=== PATIENT | male | born 1950 | race Asian ===

== ENCOUNTER → 2024-10-17 | Outpatient (CLI) | payer OTHER, SELFPAY ==
[2024-10-17 11:20] LABS: Basophils # (Auto) 0.1 Thou/mm3 (0.0-0.2); Basophils % (Auto) 1 % (0-2.5); Eosinophils # (Auto) 0.5 Thou/mm3 (0.0-0.5); Eosinophils % (Auto) 4 % (0-10); Hematocrit 35.3 % (41.0-53.0); Immature Granulocytes % (Auto) 1 % (0-0); Immature Granulocytes Auto 0.07 Thou/mm3 (0.00-0.00); Lymphocytes # (Auto) 0.9 Thou/mm3 (1.0-4.8); Lymphocytes % (Auto) 7 % (10-50); Mean Corpuscular HGB Conc 31.2 g/dl (31.0-37.0); Mean Corpuscular Hemoglobin 23.9 pg (25.0-35.0); Mean Corpuscular Volume 77 fL (80-100); Monocytes % (Auto) 8 % (0-12); Neutrophils # (Auto) 10.7 Thou/mm3 (1.8-7.7); Neutrophils % (Auto) 81 % (37-80); Nucleated Red Blood Cell % 0 /100 WBC (0); Platelet Count 379 Thou/mm3 (140-440); RDW Standard Deviation 44.4 fL (35.1-43.9); Red Blood Count 4.61 Miln/mm3 (4.50-5.90); White Blood Count 13.3 Thou/mm3 (3.8-10.6)
[2024-10-17 11:42] LABS: Alanine Aminotransferase 7 U/L (10-49); Albumin, Serum 4.2 gm/dL (3.4-4.8); Albumin/Globulin Ratio 1.5 (1.2-2.2); Alkaline Phosphatase 87 U/L (46-116); Anion Gap 6 (7-16); Aspartate Amino Transferase 16 U/L (0-34); BUN/Creatinine Ratio 9 Ratio (12-20); Bilirubin,Total 0.7 mg/dL (0.3-1.2); Blood Urea Nitrogen 9 mg/dL (9-23); Calcium 8.8 mg/dL (8.3-10.6); Calcium (Corrected) 8.8 mg/dL (8.5-10.1); Carbon Dioxide 28.7 mMol/L (20.0-31.0); Chloride 106 mMol/L (98-107); Globulin 2.8 gm/dL (2.3-3.5); Glucose 96 mg/dL (74-106); Osmolality,Calculated 279 (275-295); Potassium 3.7 mMol/L (3.4-5.1); Sodium 141 mMol/L (136-145); eGFR > 60 See Note
[2024-10-21 13:50] LABS: BCR-ABL1 Source BLOOD
[2024-10-24 06:58] LABS: P210 BCR-ABL1 NOT DETECTED
== END | disposition home or self-care (01) ==
PROVIDERS: PCP Family Medicine; Referring Provider Nurse Practitioner Family; Visit Provider Nurse Practitioner Family
DX: C92.11 Chronic myeloid leukemia, BCR/ABL-positive, in remission (principal)
CPT/HCPCS: 36415; 80053; 81206; 85025

== ENCOUNTER 2024-11-03 09:41 | Outpatient (RCR) | payer OTHER, SELFPAY | END 2024-11-22 23:59 | disposition home or self-care (01) | LOC: SCTC 09:41 | PROVIDERS: PCP Family Medicine; Referring Provider Family Medicine; Visit Provider Nurse Practitioner Family | DX: C92.10 Chronic myeloid leukemia, BCR/ABL-positive, not having achieved remission (principal); D50.9 Iron deficiency anemia, unspecified; D56.0 Alpha thalassemia; I10 Essential (primary) hypertension | CPT/HCPCS: 99212; G0463 ==

== ENCOUNTER → 2025-01-18 | Outpatient (CLI) | payer OTHER, SELFPAY ==
[2025-01-18 13:06] LABS: Basophils # (Auto) 0.1 Thou/mm3 (0.0-0.2); Basophils % (Auto) 1 % (0-2.5); Eosinophils # (Auto) 0.6 Thou/mm3 (0.0-0.5); Eosinophils % (Auto) 6 % (0-10); Hematocrit 36.2 % (41.0-53.0); Immature Granulocytes % (Auto) 1 % (0-0); Immature Granulocytes Auto 0.05 Thou/mm3 (0.00-0.00); Lymphocytes # (Auto) 0.9 Thou/mm3 (1.0-4.8); Lymphocytes % (Auto) 9 % (10-50); Mean Corpuscular HGB Conc 30.4 g/dl (31.0-37.0); Mean Corpuscular Hemoglobin 23.4 pg (25.0-35.0); Mean Corpuscular Volume 77 fL (80-100); Monocytes # (Auto) 0.7 Thou/mm3 (0.0-0.8); Monocytes % (Auto) 8 % (0-12); Neutrophils % (Auto) 76 % (37-80); Nucleated Red Blood Cell % 0 /100 WBC (0); Platelet Count 341 Thou/mm3 (140-440); RDW Standard Deviation 47.8 fL (35.1-43.9); Red Blood Count 4.71 Miln/mm3 (4.50-5.90); White Blood Count 9.3 Thou/mm3 (3.8-10.6)
[2025-01-18 13:18] LABS: Alanine Aminotransferase 11 U/L (10-49); Albumin, Serum 3.9 gm/dL (3.4-4.8); Albumin/Globulin Ratio 1.4 (1.2-2.2); Alkaline Phosphatase 77 U/L (46-116); Anion Gap 9 (7-16); Aspartate Amino Transferase 17 U/L (0-34); BUN/Creatinine Ratio 15 Ratio (12-20); Bilirubin,Total 0.4 mg/dL (0.3-1.2); Blood Urea Nitrogen 16 mg/dL (9-23); Calcium 8.9 mg/dL (8.3-10.6); Carbon Dioxide 27.1 mMol/L (20.0-31.0); Chloride 109 mMol/L (98-107); Creatinine (Component) 1.1 mg/dL (0.6-1.3); Globulin 2.7 gm/dL (2.3-3.5); Glucose 136 mg/dL (74-106); Osmolality,Calculated 291 (275-295); Potassium 3.8 mMol/L (3.4-5.1); Sodium 145 mMol/L (136-145); Total Protein 6.6 gm/dL (5.7-8.2); eGFR > 60 See Note
[2025-01-25 22:03] LABS: BCR-ABL1 Source BLOOD
[2025-01-26 07:03] LABS: P210 BCR-ABL1 NOT DETECTED
== END | disposition home or self-care (01) ==
LOC: SCTO 12:16
PROVIDERS: PCP Family Medicine; Referring Provider Nurse Practitioner Family; Visit Provider Nurse Practitioner Family
DX: C92.11 Chronic myeloid leukemia, BCR/ABL-positive, in remission (principal)
CPT/HCPCS: 36415; 80053; 81206; 85025

== ENCOUNTER → 2025-02-16 | Outpatient (CLI) | payer OTHER, SELFPAY ==
[2025-02-16 12:18] LABS: Basophils # (Auto) 0.1 Thou/mm3 (0.0-0.2); Basophils % (Auto) 0 % (0-2.5); Eosinophils # (Auto) 0.6 Thou/mm3 (0.0-0.5); Eosinophils % (Auto) 4 % (0-10); Hematocrit 36.6 % (41.0-53.0); Hemoglobin 11.4 g/dL (13.5-16.0); Immature Granulocytes % (Auto) 1 % (0-0); Immature Granulocytes Auto 0.11 Thou/mm3 (0.00-0.00); Lymphocytes # (Auto) 0.8 Thou/mm3 (1.0-4.8); Lymphocytes % (Auto) 5 % (10-50); Mean Corpuscular HGB Conc 31.1 g/dl (31.0-37.0); Mean Corpuscular Hemoglobin 23.3 pg (25.0-35.0); Mean Corpuscular Volume 75 fL (80-100); Monocytes # (Auto) 0.8 Thou/mm3 (0.0-0.8); Monocytes % (Auto) 5 % (0-12); Neutrophils # (Auto) 13.2 Thou/mm3 (1.8-7.7); Neutrophils % (Auto) 85 % (37-80); Nucleated Red Blood Cell % 0 /100 WBC (0); Platelet Count 362 Thou/mm3 (140-440); RDW Standard Deviation 44.3 fL (35.1-43.9); White Blood Count 15.6 Thou/mm3 (3.8-10.6)
[2025-02-16 12:30] LABS: Prothrombin Time 11.2 Seconds (9.0-12.2)
[2025-02-16 12:31] LABS: Alanine Aminotransferase 11 U/L (10-49); Albumin/Globulin Ratio 1.5 (1.2-2.2); Alkaline Phosphatase 72 U/L (46-116); Anion Gap 9 (7-16); Aspartate Amino Transferase 17 U/L (0-34); BUN/Creatinine Ratio 14 Ratio (12-20); Bilirubin,Total 0.4 mg/dL (0.3-1.2); Blood Urea Nitrogen 14 mg/dL (9-23); Calcium 8.8 mg/dL (8.3-10.6); Calcium (Corrected) 8.8 mg/dL (8.5-10.1); Carbon Dioxide 29.3 mMol/L (20.0-31.0); Chloride 106 mMol/L (98-107); Globulin 2.6 gm/dL (2.3-3.5); Glucose 104 mg/dL (74-106); Osmolality,Calculated 287 (275-295); Potassium 3.8 mMol/L (3.4-5.1); Sodium 144 mMol/L (136-145); Total Protein 6.6 gm/dL (5.7-8.2); eGFR > 60 See Note
== END | disposition home or self-care (01) ==
LOC: COPL 11:39
PROVIDERS: PCP Family Medicine; Referring Provider Internal Medicine; Visit Provider Internal Medicine
DX: I25.10 Atherosclerotic heart disease of native coronary artery without angina pectoris (principal); R79.1 Abnormal coagulation profile; I63.9 Cerebral infarction, unspecified
CPT/HCPCS: 36415; 80053; 85025; 85610

== ENCOUNTER 2025-02-20 15:38 | Outpatient (RCR) | payer OTHER, SELFPAY | END 2025-02-20 23:59 | disposition home or self-care (01) | LOC: SCTC 15:38 | PROVIDERS: PCP Family Medicine; Referring Provider Family Medicine; Visit Provider Nurse Practitioner Family | DX: C92.10 Chronic myeloid leukemia, BCR/ABL-positive, not having achieved remission (principal); R05.9 Cough, unspecified; Z87.891 Personal history of nicotine dependence; I10 Essential (primary) hypertension; Z86.2 Personal history of diseases of the blood and blood-forming organs and certain disorders involving the immune mechanism | CPT/HCPCS: 99212; G0463 ==

== ENCOUNTER → 2025-03-30 | Outpatient (CLI) | payer OTHER, SELFPAY ==
[2025-03-28 12:20] LABS: Basophils # (Auto) 0.1 Thou/mm3 (0.0-0.2); Basophils % (Auto) 0 % (0-2.5); Eosinophils # (Auto) 0.1 Thou/mm3 (0.0-0.5); Eosinophils % (Auto) 0 % (0-10); Hematocrit 38.3 % (41.0-53.0); Hemoglobin 11.9 g/dL (13.5-16.0); Immature Granulocytes % (Auto) 1 % (0-0); Immature Granulocytes Auto 0.28 Thou/mm3 (0.00-0.00); Lymphocytes # (Auto) 0.5 Thou/mm3 (1.0-4.8); Lymphocytes % (Auto) 2 % (10-50); Mean Corpuscular HGB Conc 31.1 g/dl (31.0-37.0); Mean Corpuscular Hemoglobin 23.5 pg (25.0-35.0); Mean Corpuscular Volume 76 fL (80-100); Monocytes # (Auto) 1.5 Thou/mm3 (0.0-0.8); Monocytes % (Auto) 6 % (0-12); Neutrophils # (Auto) 23.2 Thou/mm3 (1.8-7.7); Neutrophils % (Auto) 91 % (37-80); Nucleated Red Blood Cell % 0 /100 WBC (0); Platelet Count 407 Thou/mm3 (140-440); RDW Standard Deviation 44.2 fL (35.1-43.9); Red Blood Count 5.06 Miln/mm3 (4.50-5.90); White Blood Count 25.6 Thou/mm3 (3.8-10.6)
[2025-03-28 12:33] LABS: Alanine Aminotransferase < 7 U/L (10-49); Albumin, Serum 4.4 gm/dL (3.4-4.8); Albumin/Globulin Ratio 1.5 (1.2-2.2); Alkaline Phosphatase 80 U/L (46-116); Anion Gap 8 (7-16); Aspartate Amino Transferase 15 U/L (0-34); BUN/Creatinine Ratio 14 Ratio (12-20); Blood Urea Nitrogen 15 mg/dL (9-23); Carbon Dioxide 26.5 mMol/L (20.0-31.0); Chloride 105 mMol/L (98-107); Creatinine (Component) 1.1 mg/dL (0.6-1.3); Glucose 126 mg/dL (74-106); Osmolality,Calculated 280 (275-295); Potassium 3.2 mMol/L (3.4-5.1); Sodium 139 mMol/L (136-145); Total Protein 7.4 gm/dL (5.7-8.2); eGFR > 60 See Note
--- NOTE | 2025-03-30 14:00 | XR_ITS ---
Examination: CT chest with intravenous contrast 2-D sagittal and coronal reconstructions Exam date and time: March 30, 2025 1411 hours INDICATIONS: Diagnosis chronic myeloid leukemia in remission, coughing one month, leukemia diagnosis 2010 CTDI:vol (mGy) 5.35 DLP: (mGycm) 215 Technique: Multiple axial sections of the thorax have been obtained. Sections have been obtained, 3 mm slice thickness. Mediastinal and lung density settings have been obtained. Intravenous contrast administered, 60 cc Isovue-370. 2-D sagittal, coronal images obtained. Low dose protocols were performed. One or more of the following dose reduction techniques were used; automated exposure control, adjustment of the mA and/or KV according to patient size, use of iterative reconstruction technique. Findings: Heavy thoracic aortic calcification No thoracic aortic aneurysm dilatation No pulmonary artery filling defects Heavy calcification left anterior descending right coronary arteries No paratracheal tracheobronchial or bronchopulmonary adenopathy At least 15 bilateral pulmonary nodules, the largest in the left lower lobe 12 mm with indistinct margins Parenchymal disease which may represent pneumonia at the left base COPD with areas of airspace destruction No pulmonary edema No visualized liver or splenic lesion No gallstones No pancreatic mass Heavy abdominal aortic calcification 2 mm upper pole right renal calculus Severe osteopenia IMPRESSION: Multiple pulmonary nodules as above, 6 month follow-up CT chest without contrast recommended More prominent parenchymal disease left base most consistent with pneumonia but clinical correlation advised COPD 2 mm upper pole nonobstructing right renal calculus
[2025-04-01 17:48] LABS: BCR-ABL1 Source BLOOD; BCR-ABL1/ABL1 % IS 0.064 (0.000)
[2025-04-03 07:07] LABS: P210 BCR-ABL1 DETECTED
== END | disposition home or self-care (01) ==
LOC: CCTX 13:46
PROVIDERS: PCP Family Medicine; Referring Provider Nurse Practitioner Family; Visit Provider Nurse Practitioner Family
DX: R91.8 Other nonspecific abnormal finding of lung field (principal); C92.11 Chronic myeloid leukemia, BCR/ABL-positive, in remission
CPT/HCPCS: 36415; 71260; 80053; 81206; 85025; A4649; Q9967

== ENCOUNTER 2025-04-10 13:20 | Outpatient (RCR) | payer OTHER, SELFPAY ==
--- NOTE | 2025-04-13 14:18 | CTCFLWUP_ITS ---
Patient: DERRICK WATSON : 1950 Page 2 of 2 FOLLOW UP NOTE DATE OF SERVICE: 04/10/2025 NAME: DERRICK WATSON ACCOUNT: [id number] : 1950 AGE: 74 INTERVAL HISTORY: Subjective: Chief Complaint Follow-up for multiple medical conditions, fatigue, possible iron deficiency History of Present Illness Azam Pardo is a patient with a complex medical history including chronic myeloid leukemia (CML), coronary artery disease (CAD), chronic obstructive pulmonary disease (COPD), and JAK2 mutation-positive thrombocythemia. He presents for follow-up of his multiple conditions and recent cardiac events. The patient reports feeling tired, which may be related to iron deficiency. He recently underwent a cardiac stent placement two weeks ago due to significant coronary artery disease, following a myocardial infarction in December. His heart condition is described as fragile, requiring careful management alongside his blood cancer treatment. Azam's CML history is notable for being BCR-ABL negative since 2012, but restarting in 2021. It became negative again in June 2024, but is now showing an increase (0.064). He was previously on Gleevec, then switched to Tasigna due to peripheral vascular disease. However, Tasigna was discontinued following his myocardial infarction. Currently, he is not on any CML medication. The patient's COPD, likely exacerbated by chronic smoking, was noted in his 8th ME scan. He quit smoking in 2009. Recent pulmonary function tests (PFTs) show significant obstruction and air trapping. A recent CT scan revealed at least 15 small nodules in his lungs and left-sided pneumonia. Kristinas thrombocythemia is being managed with hydroxyurea, which is causing anemia as a side effect. He is currently taking aspirin and Brilinta following his heart attack, which increases his risk of bleeding. Medications and Supplements - Tasigna - Discontinued due to myocardial infarction. - Gleevec - Switched to Tasigna due to peripheral vascular disease. - Hydroxyurea - Used for treatment of JAK2 mutation-positive thrombocythemia. - Causes bone marrow suppression, leading to anemia. - Aspirin - Brilinta - Taken after heart attack in December. - Increases risk of bleeding. Review of Systems General: Positive for fatigue. Cardiovascular: Negative for chest pain. Respiratory: Positive for shortness of breath (implied by COPD and lungs are very bad ). 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 Alpha thalassemia Peripheral vascular disease of the right lower extremity. S/p surgery INTERVAL HISTORY: PREVIOUS NOTE: Derrick Nascimento is a 74-year-old Welsh-speaking [place] male with following history. 12/16/2011: Bone marrow biopsy and aspiration showed marketed hypercellular marrow, myeloid hyperplasia in all stages of maturation with 1% blast population. BCR/ABL FISH study positive. BCR/ABL translocation was observed in the 82% of the cells analyzed. Cytogenetics positive for Elbert chromosome. January 2012: Tasigna started. 07/19/2013: BCR/able transcript level 0%. 01/19/2014: BCR/ABL transcript level 0% 08/13/2015: BCR/ABL transcript level 0% 05/27/2016: BCR/able transcript level of 0%. 2017: Tasigna was changed to Gleevec due to insurance reasons. 03/29/2018: BCR/ABL transcript level 0% 06/28/2018: BCR/ABL transcript level 0%. 07/05/2018: Gleevec discontinued. 10/29/2018: BCR/ABL transcript levels 2.694% 11/08/2018: Gleevec 300 mg p.o. daily restarted. Patient was also taking hydroxyurea. 12/31/2018: BCR/ABL transcript level 0% 01/17/2019: Hydroxyurea discontinued. 04/05/2019: BCR/ABL transcript level 0%. 04/11/2019: Alpha globin common mutation test showed heterozygous positive for alpha (Zero), genotype (- -/alpha alpha) thalassemia mutation. 06/23/2019: BCR/ABL transcript level 0.006% 08/23/2019: BCR/ABL transcript level 0%. 11/21/2019: BCR/ABL transcript level 0%. 02/23/2020: BCR/ABL transcript level 0.004% 05/24/2020: BCR/ABL transcript level 0.004% 08/14/2020: BCR/ABL transcript level 0.007%. WBC 9.8, ANC 7.2. 11/13/2020: BCR/ABL transcript level 0.007%. WBC 10.1, ANC 6.5. 02/12/2021: BCR/ABL transcript level 0%. WBC 13.0, ANC 9.8. 02/12/2021: Patient has decreased the dose of Tasigna 250 mg p.o. twice daily due to body aches. 05/22/2021: Mr. Watson is currently taking Tasigna 300 mg p.o. twice daily. WBC is 9.9, ANC 16.6. BCR/ABL transcript level is 0%. WBC 19.9, ANC 16.6. 08/15/2021: BCR/ABL transcript level 0%. WBC 20.6, ANC 16.7. 11/14/2021: BCR/ABL transcript level 0%. WBC 15.1, ANC 12.3, hemoglobin 10.7, MCV 73, platelets 523,000. 11/29/2021: Patient stopped taking Tasigna due to worsening peripheral vascular disease in the lower extremities. 03/26/2022: Patient restarted taking Tasigna 300 mg p.o. twice daily 04/08/2022: BCR/ABL transcript level 1.477% 07/24/2022: BCR/ABL transcript level 0.0% 02/19/2023: BCR/ABL transcript level 0.0%. 06/19/2023: BCR/ABL transcript level 0.007%. 09/21/2023: BCR/ABL transcript level 0.000%. 01/19/2024: BCR/ABL transcript level 0.005%. 04/19/2024: BCR-ABL transcript level 0.003%. 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 on Tasigna 300 mg p.o. twice jena and hydroxyurea 500 mg every other day. Alpha thalassemia Peripheral vascular disease of the right lower extremity. S/p surgery DATE OF DIAGNOSIS: 12/16/2011 STAGE/TNM: TREATMENT HISTORY: Care?Plan Start?Date Cycle Day Intent HISTORY OF PRESENT ILLNESS: OTHER MEDICAL HISTORY/CONDITIONS: FAMILY HISTORY: SOCIAL HISTORY: MEDICATIONS: 1. Aspir-81 - 81 mg 1 Daily 2. Brilinta - 60 mg 1 tab Twice a Day 3. Brilinta - 90 mg 1 tab Twice a Day 4. hydrocodone bitartrate - 7.5 mg Twice a Day 5. hydroxyurea - 500 mg 1 Capsule Every other day 6. Lipitor - 20 mg 1 tab Daily 7. metoprolol succinate - 50 mg 1 tab Daily 8. pantoprazole - 40 mg 1 tab Daily 9. pentoxifylline - 400 mg 1 tab Twice a Day 10. tamsulosin - 0.4 mg 1 Capsule Daily 11. Tylenol - 500 mg As needed 12. Ventolin HFA - 90 mcg/actuation 2 Puff(s) Twice a Day Medications Last Reconciled by Keisha Gary MA on 04/10/2025 ALLERGIES: No Known Drug Allergies REVIEW OF SYSTEMS: A complete 14-point review of systems was performed and is negative except as noted in interval history. PHYSICAL EXAMINATION: VITAL SIGNS: Temperature?98.4, B/P?137/68, Oxygen?Saturation?97% Weight?96?lbs PAIN: 0 - No pain ECOG Performance Status: 0 - Asymptomatic and fully active GENERAL APPEARANCE: Appears well, in no apparent distress, appropriately interactive. HEENT: normal conjunctiva, no scleral icterus, normal hearing, lips without lesions, neck normal range of motion. CARDIOVASCULAR: Normal heart sounds PULMONARY: Normal respiratory effort, no respiratory distress or use of accessory muscles, speaking in full sentences, no tachypnea. EXTREMITIES: No pedal edema SKIN: Normal skin appearance. NEUROLOGIC: Alert and ORIENTED x4. PSHYCHIATRIC: Appropriate affect, mood normal, behavior normal, intact thought and speech. LABORATORY DATA: I have personally reviewed and interpreted each of the patient?s relevant lab tests, abnormal findings are below: Date 03/28/25 04/11/25 ??WHITE?BLOOD?COUNT?(Thou/mm3) 25.6?H 14.2?H ??RED?BLOOD?COUNT?(Miln/mm3) 5.06 4.88 ??HEMOGLOBIN?(gm/dl) 11.9?L 11.6?L ??HEMATOCRIT?(%) 38.3?L 36.8?L ??PLATELET?COUNT?(Thou/mm3) 407 486?H ??NEUTROPHILS?%,?AUTO?(%) 91?H 82?H ??LYMPH?%,?AUTO?(%) 2?L 7?L ??NEUTROPHILS,?AUTO?(Thou/mm3) 23.2?H 11.6?H ??GLUCOSE,RANDOM?(mg/dL) 126?H 100 ??BLOOD?UREA?NITROGEN?(mg/dL) 15 12 ??CREATININE?(mg/dL) 1.10 1.00 ??SODIUM?(mmol/L) 139 146?H ??POTASSIUM?(mmol/L) 3.2?L 3.7 ??CHLORIDE?(mmol/L) 105 109?H ??CrCl?(CandG)?(ml/min) 36.65 38.71 ??AST/SGOT?(Unit/L) 15 13 ??ALT/SGPT?(Unit/L) <?7?L <?7?L ??ALKALINE?PHOSPHATASE?(Unit/L) 80 79 ??BILIRUBIN,?TOTAL?(mg/dL) 1.0 0.5 ??PROTEIN?TOTAL?(gm/dl) 7.4 7.0 ??ALBUMIN,?SERUM?(gm/dl) 4.4 4.1 ??GLOBULIN?(gm/dl) 3.0 2.9 ??ALBUMIN/GLOBULIN?RATIO 1.5 1.4 ??CALCIUM,?SERUM?(mg/dL) 9.0 8.4 ??CALCIUM?SERUM?(CORRECTED)?(mg/dL) 9.0 8.4?L ASSESSMENT/PLAN: 1. Chronic phase CML. BCR/ABL transcript level 0.000 on 02/16/2025. Platelets are 362,000, WBC 15.6, ANC 13.2 (02/16/2025). 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 Currently Mr. Watson is on hydroxyurea 500mg every other day. Tolerating them well without any significant side effects. We will not be restarting to tasigna due to black box warning and patient's myocardial infarction 01/23/2025. BCR-ABL transcript levels remain at 0.000, if levels increase we will consider repeating bone marrow biopsy then. Referral to Dr. Calvin at [facility] for second opinion on treatment options for CML, (chronic myeloid leukemia). Patient can continue with hydroxyurea every other day while we wait for second opinion from Dr. Calvin. Assessment and Plan: Azam pardo, a patient with a history of chronic myeloid leukemia (CML), coronary artery disease (CAD), and chronic obstructive pulmonary disease (COPD), presents for follow-up of multiple medical issues including recent myocardial infarction, lung nodules, and thrombocythemia. Patient has a history of CML, previously treated with Gleevec and then Tasigna. BCR-ABL was negative since 2012, restarted in 2021, and became negative again in June 2024. However, recent labs show BCR-ABL is now 0.064, indicating a possible relapse. Patient also has JAK2 mutation-positive thrombocythemia, causing elevated platelet count (694). Current symptoms include fatigue, which may be related to iron deficiency. White cell count is elevated at 12.7, and eosinophils are also elevated. Patient is not currently on any CML medication due to recent myocardial infarction. Plan: - Order bone marrow biopsy in [place] to assess current clone and check for any changes or mutations - Consult with Dr. Morse, an expert in this case - Consider restarting CML treatment after cardiac evaluation - Monitor BCR-ABL levels and complete blood count - Evaluate for iron deficiency and consider supplementation if confirmed Coronary Artery Disease (CAD) with Recent Myocardial Infarction Assessment: Patient experienced a myocardial infarction in December 2024, likely exacerbated by chronic smoking history and COPD. Two weeks ago, another stent was placed due to significant coronary artery disease. Patient is currently on dual antiplatelet therapy (aspirin and Brilinta) post-[place], which increases bleeding risk. The heart is in a fragile state, complicating management of other conditions, particularly CML treatment. Plan: - Order echocardiogram to assess current heart function - Continue aspirin and Brilinta as prescribed - Coordinate with cardiology for ongoing management - Consider cardiac risks when planning CML treatment Chronic Obstructive Pulmonary Disease (COPD) Assessment: COPD was noted in the patient's 8th ME scan. Recent pulmonary function tests (PFTs) show significant obstruction and air trapping. Patient has at least 15 small nodules in the lungs and left-sided pneumonia on recent imaging. Patient quit smoking in 2009, but has a significant smoking history contributing to COPD and CAD. Plan: - Monitor respiratory status - Follow up on recent CT scan and PFT results - Consider pulmonology referral for management of COPD and lung nodules Thrombocythemia Assessment: Patient has JAK2 mutation-positive thrombocythemia, causing elevated platelet count (694). Previously treated with hydroxyurea, which was effective but caused bone marrow suppression and anemia. Plan: - Reassess need for hydroxyurea treatment, considering risks and benefits - Monitor platelet count and hemoglobin levels - Coordinate treatment plan with hematology Electrolyte Imbalance Assessment: Recent labs show low potassium levels. Plan: - Prescribe potassium supplement - Recheck potassium levels after supplementation Peripheral Vascular Disease Assessment: Patient has a history of peripheral vascular disease, which led to switching from Gleevec to Tasigna for CML treatment. Plan: - Vascular surgery scheduled for April 2025 - Coordinate care with vascular surgery team BILLING AND COMPLIANCE: I reviewed external records from providers outside my specialty as summarized above. I spent a total of 50 minutes on this patient?s care on the day of their visit excluding time spent related to any billed procedures. This time includes time spent with the patient as well as time spent documenting in the medical record, reviewing patients records and tests, obtaining history, placing orders, communicating with other healthcare professionals, counseling the patient, family or caregiver, and/or care coordination for the diagnoses above. Electronically Signed by: Wolf Siu MD T: 1:11 PM CC: Sarah? PCP: Dorian Christian Referring: Dorian Christian This document was completed utilizing speech recognition software. Grammatical errors, random word insertions, pronoun errors, and incomplete sentences are an occasional consequence of this system due to software limitations, ambient noise, and hardware issues. Any formal questions or concerns about the content, text or information contained within the body of this dictation should be directly addressed to the provider for clarification.
== END 2025-04-22 23:59 | disposition home or self-care (01) ==
LOC: SCTC 13:20
PROVIDERS: PCP Family Medicine; Referring Provider Family Medicine; Visit Provider Internal Medicine Hematology & Oncology
DX: C92.11 Chronic myeloid leukemia, BCR/ABL-positive, in remission (principal); R53.0 Neoplastic (malignant) related fatigue; I25.10 Atherosclerotic heart disease of native coronary artery without angina pectoris; J44.9 Chronic obstructive pulmonary disease, unspecified; D75.839 Thrombocytosis, unspecified; E87.6 Hypokalemia; I73.9 Peripheral vascular disease, unspecified
CPT/HCPCS: 99212; G0463

== ENCOUNTER → 2025-04-11 | Outpatient (CLI) | payer OTHER, SELFPAY ==
[2025-04-11 09:18] LABS: Quantiferon-TB* See Sep Rpt
[2025-04-11 10:17] LABS: Basophils # (Auto) 0.1 Thou/mm3 (0.0-0.2); Basophils % (Auto) 1 % (0-2.5); Eosinophils # (Auto) 0.5 Thou/mm3 (0.0-0.5); Eosinophils % (Auto) 3 % (0-10); Hematocrit 36.8 % (41.0-53.0); Hemoglobin 11.6 g/dL (13.5-16.0); Immature Granulocytes % (Auto) 1 % (0-0); Lymphocytes % (Auto) 7 % (10-50); Mean Corpuscular HGB Conc 31.5 g/dl (31.0-37.0); Mean Corpuscular Hemoglobin 23.8 pg (25.0-35.0); Mean Corpuscular Volume 75 fL (80-100); Monocytes % (Auto) 7 % (0-12); Neutrophils # (Auto) 11.6 Thou/mm3 (1.8-7.7); Neutrophils % (Auto) 82 % (37-80); Nucleated Red Blood Cell % 0 /100 WBC (0); Platelet Count 486 Thou/mm3 (140-440); RDW Standard Deviation 45.1 fL (35.1-43.9); Red Blood Count 4.88 Miln/mm3 (4.50-5.90); White Blood Count 14.2 Thou/mm3 (3.8-10.6)
[2025-04-11 10:43] LABS: Alanine Aminotransferase < 7 U/L (10-49); Albumin, Serum 4.1 gm/dL (3.4-4.8); Albumin/Globulin Ratio 1.4 (1.2-2.2); Alkaline Phosphatase 79 U/L (46-116); Anion Gap 8 (7-16); Aspartate Amino Transferase 13 U/L (0-34); BUN/Creatinine Ratio 12 Ratio (12-20); Bilirubin,Total 0.5 mg/dL (0.3-1.2); Blood Urea Nitrogen 12 mg/dL (9-23); Calcium 8.4 mg/dL (8.3-10.6); Calcium (Corrected) 8.4 mg/dL (8.5-10.1); Chloride 109 mMol/L (98-107); Globulin 2.9 gm/dL (2.3-3.5); Glucose 100 mg/dL (74-106); Osmolality,Calculated 290 (275-295); Potassium 3.7 mMol/L (3.4-5.1); Sodium 146 mMol/L (136-145); eGFR > 60 See Note
[2025-04-11 13:10] LABS: Cocci Serology, IgM Negative (Negative)
[2025-04-11 15:39] LABS: HIV (1&2) Antibody Rapid Non-Reactive
[2025-04-12 11:13] LABS: Cocci Serology, IgG Negative (Negative)
[2025-04-14 15:34] LABS: BCR-ABL1 Source BLOOD; BCR-ABL1/ABL1 % IS 0.024 (0.000)
[2025-04-18 06:58] LABS: P210 BCR-ABL1 DETECTED
== END | disposition home or self-care (01) ==
LOC: COPL 08:57
PROVIDERS: PCP Family Medicine; Referring Provider Internal Medicine Hematology & Oncology; Visit Provider Internal Medicine Hematology & Oncology
DX: C92.11 Chronic myeloid leukemia, BCR/ABL-positive, in remission (principal)
CPT/HCPCS: 36415; 80053; 81206; 85025; 86331; 86480; 86635; 86703

== ENCOUNTER → 2025-04-18 | Outpatient (CLI) | payer OTHER, SELFPAY ==
--- NOTE | 2025-04-18 11:15 | EKG_ITS ---
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: COLTON : 1950 Requested By: Edward Fam Order Number: [id number] Reading MD: Edward Fam Measurements Intervals [place] Rate: 94 P: 80 SC: 212 QRS: 96 QRSD: 147 T: 74 QT: 384 QTc: 482 Interpretive Statements SINUS RHYTHM WITH FIRST DEGREE AV BLOCK WITH FREQUENT VENTRICULAR PREMATURE COMPLEXES POSSIBLE LEFT ATRIAL ENLARGEMENT [-0.1mV P WAVE IN V1/V2] RIGHT BUNDLE BRANCH BLOCK [120+ ms QRS DURATION, UPRIGHT V1, 40+ ms S IN I/aVL/V4/V5/V6] SEPTAL MYOCARDIAL INFARCTION , OF INDETERMINATE AGE [40+ ms Q WAVE IN V1/V2] Compared to ECG 05/20/2024 10:32:45 Ventricular premature complex(es) now present Myocardial infarct finding now present /store/S0/[id number].pdf
[2025-04-18 11:33] LABS: Partial Thromboplastin Time 29.6 Seconds (22.0-36.0); Prothrombin Time 11.4 Seconds (9.0-12.2)
[2025-04-18 11:57] LABS: Basophils # (Auto) 0.1 Thou/mm3 (0.0-0.2); Basophils % (Auto) 1 % (0-2.5); Eosinophils # (Auto) 0.4 Thou/mm3 (0.0-0.5); Eosinophils % (Auto) 3 % (0-10); Hematocrit 39.8 % (41.0-53.0); Hemoglobin 12.6 g/dL (13.5-16.0); Immature Granulocytes % (Auto) 1 % (0-0); Immature Granulocytes Auto 0.07 Thou/mm3 (0.00-0.00); Lymphocytes % (Auto) 7 % (10-50); Mean Corpuscular HGB Conc 31.7 g/dl (31.0-37.0); Mean Corpuscular Hemoglobin 23.6 pg (25.0-35.0); Mean Corpuscular Volume 75 fL (80-100); Monocytes # (Auto) 0.8 Thou/mm3 (0.0-0.8); Monocytes % (Auto) 6 % (0-12); Neutrophils # (Auto) 11.1 Thou/mm3 (1.8-7.7); Neutrophils % (Auto) 82 % (37-80); Nucleated Red Blood Cell % 0 /100 WBC (0); Platelet Count 422 Thou/mm3 (140-440); RDW Standard Deviation 44.2 fL (35.1-43.9); Red Blood Count 5.34 Miln/mm3 (4.50-5.90); White Blood Count 13.5 Thou/mm3 (3.8-10.6)
[2025-04-18 12:21] LABS: Alanine Aminotransferase < 7 U/L (10-49); Albumin, Serum 4.2 gm/dL (3.4-4.8); Albumin/Globulin Ratio 1.5 (1.2-2.2); Alkaline Phosphatase 89 U/L (46-116); Anion Gap 10 (7-16); Aspartate Amino Transferase 15 U/L (0-34); BUN/Creatinine Ratio 12 Ratio (12-20); Bilirubin,Total 0.4 mg/dL (0.3-1.2); Blood Urea Nitrogen 13 mg/dL (9-23); Carbon Dioxide 28.8 mMol/L (20.0-31.0); Chloride 107 mMol/L (98-107); Creatinine (Component) 1.1 mg/dL (0.6-1.3); Globulin 2.8 gm/dL (2.3-3.5); Glucose 124 mg/dL (74-106); Osmolality,Calculated 291 (275-295); Potassium 4.4 mMol/L (3.4-5.1); Sodium 146 mMol/L (136-145); eGFR > 60 See Note
== END | disposition home or self-care (01) ==
PROVIDERS: PCP Family Medicine; Referring Provider Surgery Vascular Surgery; Visit Provider Surgery Vascular Surgery
DX: Z01.818 Encounter for other preprocedural examination (principal); I70.213 Atherosclerosis of native arteries of extremities with intermittent claudication, bilateral legs
CPT/HCPCS: 36415; 80053; 85025; 85610; 85730; 93005

== ENCOUNTER 2025-05-25 13:26 | Outpatient (RCR) | payer OTHER, SELFPAY ==
--- NOTE | 2025-06-12 00:17 | CTCFLWUP_ITS ---
Patient: DERRICK WATSON : 1950 Page 4 of 6 FOLLOW UP NOTE DATE OF SERVICE: 05/25/2025 NAME: DERRICK WATSON ACCOUNT: [id number] : 1950 AGE: 74 INTERVAL HISTORY: Derrick, a male with chronic myeloid leukemia in remission since 2012, presented for follow-up after stopping hydroxyurea and nilotinib (Tasigna) following a recent heart attack. His BCR-ABL levels have been [address] scan showed 15 small lung nodules with pneumonia-like changes, and pulmonary function tests revealed 75% obstructive disease unresponsive to inhalers. Management includes discontinuing hydroxyurea, monitoring CBC every 2 months, BCR-ABL testing quarterly, pulmonology referral, and continuing multivitamin supplementation. Subjective: Chief Complaint Follow-up for chronic myeloid leukemia (CML) in remission, recent discontinuation of hydroxyurea, history of heart attack History of Present Illness Derrick Perez is a male patient with a history of chronic myeloid leukemia (CML) presenting for follow-up. He recently had a heart attack and has stopped taking hydroxyurea and Tasigna (nilotinib) as a result. The patient reports feeling better since stopping hydroxyurea, which he was taking at a very small dose. He discontinued Tasigna in December 2024 when he experienced a heart attack. The patient has been in remission from CML since 2012, with BCR-ABL levels consistently at 0 for the past [address] scan revealed small nodules in the patient's chest, with approximately 15 nodules noted. There was also evidence of pneumonia-like changes in his lungs. The patient reports being sick prior to the CT scan. A lung function test was performed, showing that the patient could not reach 90 percent volume. He has been diagnosed with 75 percent obstructive disease, which did not improve with inhaler use. The patient has a history of smoking since age 14 but quit before his leukemia diagnosis. The patient denies seeing a lung specialist for his respiratory issues. He reports a history of pneumonia, which may have contributed to elevated white blood cell counts in the past. The patient is not currently experiencing any specific symptoms related to his CML or respiratory condition. Medications and Supplements - Hydroxyurea - Recently stopped due to heart attack - Was on a very small dose - Tasigna (Nilotinib) - Stopped in December 2024 - Adult multivitamin - Daily Review of Systems Respiratory: Positive for difficulty reaching 90 percent volume on lung function test. 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 Alpha thalassemia Peripheral vascular disease of the right lower extremity. S/p surgery INTERVAL HISTORY: PREVIOUS NOTE: Derrick Nascimento is a 74-year-old Danish-speaking [place] male with following history. 12/16/2011: Bone marrow biopsy and aspiration showed marketed hypercellular marrow, myeloid hyperplasia in all stages of maturation with 1% blast population. BCR/ABL FISH study positive. BCR/ABL translocation was observed in the 82% of the cells analyzed. Cytogenetics positive for [place] chromosome. January 2012: Tasigna started. 07/19/2013: BCR/able transcript level 0%. 01/19/2014: BCR/ABL transcript level 0% 08/13/2015: BCR/ABL transcript level 0% 05/27/2016: BCR/able transcript level of 0%. 2017: Tasigna was changed to Gleevec due to insurance reasons. 03/29/2018: BCR/ABL transcript level 0% 06/28/2018: BCR/ABL transcript level 0%. 07/05/2018: Gleevec discontinued. 10/29/2018: BCR/ABL transcript levels 2.694% 11/08/2018: Gleevec 300 mg p.o. daily restarted. Patient was also taking hydroxyurea. 12/31/2018: BCR/ABL transcript level 0% 01/17/2019: Hydroxyurea discontinued. 04/05/2019: BCR/ABL transcript level 0%. 04/11/2019: Alpha globin common mutation test showed heterozygous positive for alpha (Zero), genotype (- -/alpha alpha) thalassemia mutation. 06/23/2019: BCR/ABL transcript level 0.006% 08/23/2019: BCR/ABL transcript level 0%. 11/21/2019: BCR/ABL transcript level 0%. 02/23/2020: BCR/ABL transcript level 0.004% 05/24/2020: BCR/ABL transcript level 0.004% 08/14/2020: BCR/ABL transcript level 0.007%. WBC 9.8, ANC 7.2. 11/13/2020: BCR/ABL transcript level 0.007%. WBC 10.1, ANC 6.5. 02/12/2021: BCR/ABL transcript level 0%. WBC 13.0, ANC 9.8. 02/12/2021: Patient has decreased the dose of Tasigna 250 mg p.o. twice daily due to body aches. 05/22/2021: Mr. Watson is currently taking Tasigna 300 mg p.o. twice daily. WBC is 9.9, ANC 16.6. BCR/ABL transcript level is 0%. WBC 19.9, ANC 16.6. 08/15/2021: BCR/ABL transcript level 0%. WBC 20.6, ANC 16.7. 11/14/2021: BCR/ABL transcript level 0%. WBC 15.1, ANC 12.3, hemoglobin 10.7, MCV 73, platelets 523,000. 11/29/2021: Patient stopped taking Tasigna due to worsening peripheral vascular disease in the lower extremities. 03/26/2022: Patient restarted taking Tasigna 300 mg p.o. twice daily 04/08/2022: BCR/ABL transcript level 1.477% 07/24/2022: BCR/ABL transcript level 0.0% 02/19/2023: BCR/ABL transcript level 0.0%. 06/19/2023: BCR/ABL transcript level 0.007%. 09/21/2023: BCR/ABL transcript level 0.000%. 01/19/2024: BCR/ABL transcript level 0.005%. 04/19/2024: BCR-ABL transcript level 0.003%. 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 on Tasigna 300 mg p.o. twice jena and hydroxyurea 500 mg every other day. Alpha thalassemia Peripheral vascular disease of the right lower extremity. S/p surgery DATE OF DIAGNOSIS: 12/16/2011 STAGE/TNM: TREATMENT HISTORY: Care?Plan Start?Date Cycle Day Intent HISTORY OF PRESENT ILLNESS: OTHER MEDICAL HISTORY/CONDITIONS: FAMILY HISTORY: SOCIAL HISTORY: MEDICATIONS: 1. Aspir-81 - 81 mg 1 Daily 2. Brilinta - 60 mg 1 tab Twice a Day 3. Brilinta - 90 mg 1 tab Twice a Day 4. hydrocodone bitartrate - 7.5 mg Twice a Day 5. hydroxyurea - 500 mg 1 Capsule Every other day 6. Lipitor - 20 mg 1 tab Daily 7. metoprolol succinate - 50 mg 1 tab Daily 8. pantoprazole - 40 mg 1 tab Daily 9. pentoxifylline - 400 mg 1 tab Twice a Day 10. tamsulosin - 0.4 mg 1 Capsule Daily 11. Tylenol - 500 mg As needed 12. Ventolin HFA - 90 mcg/actuation 2 Puff(s) Twice a Day Medications Last Reconciled by Keisha Gary MA on 05/25/2025 ALLERGIES: No Known Drug Allergies REVIEW OF SYSTEMS: A complete 14-point review of systems was performed and is negative except as noted in interval history. PHYSICAL EXAMINATION: VITAL SIGNS: Temperature?98.2, B/P?108/60, Oxygen?Saturation?98% Weight?100?lbs PAIN: 0 - No pain ECOG Performance Status: 0 - Asymptomatic and fully active GENERAL APPEARANCE: Appears well, in no apparent distress, appropriately interactive. HEENT: normal conjunctiva, no scleral icterus, normal hearing, lips without lesions, neck normal range of motion. CARDIOVASCULAR: Normal heart sounds PULMONARY: Normal respiratory effort, no respiratory distress or use of accessory muscles, speaking in full sentences, no tachypnea. EXTREMITIES: No pedal edema SKIN: Normal skin appearance. NEUROLOGIC: Alert and ORIENTED x4. PSHYCHIATRIC: Appropriate affect, mood normal, behavior normal, intact thought and speech. LABORATORY DATA: I have personally reviewed and interpreted each of the patient?s relevant lab tests, abnormal findings are below: Date 04/11/25 04/18/25 ??WHITE?BLOOD?COUNT?(Thou/mm3) 14.2?H 13.5?H ??RED?BLOOD?COUNT?(Miln/mm3) 4.88 5.34 ??HEMOGLOBIN?(gm/dl) 11.6?L 12.6?L ??HEMATOCRIT?(%) 36.8?L 39.8?L ??PLATELET?COUNT?(Thou/mm3) 486?H 422 ??NEUTROPHILS?%,?AUTO?(%) 82?H 82?H ??LYMPH?%,?AUTO?(%) 7?L 7?L ??NEUTROPHILS,?AUTO?(Thou/mm3) 11.6?H 11.1?H ??GLUCOSE,RANDOM?(mg/dL) 100 124?H ??BLOOD?UREA?NITROGEN?(mg/dL) 12 13 ??CREATININE?(mg/dL) 1.00 1.10 ??SODIUM?(mmol/L) 146?H 146?H ??POTASSIUM?(mmol/L) 3.7 4.4 ??CHLORIDE?(mmol/L) 109?H 107 ??CrCl?(CandG)?(ml/min) 38.71 35.19 ??AST/SGOT?(Unit/L) 13 15 ??ALT/SGPT?(Unit/L) <?7?L <?7?L ??ALKALINE?PHOSPHATASE?(Unit/L) 79 89 ??BILIRUBIN,?TOTAL?(mg/dL) 0.5 0.4 ??PROTEIN?TOTAL?(gm/dl) 7.0 7.0 ??ALBUMIN,?SERUM?(gm/dl) 4.1 4.2 ??GLOBULIN?(gm/dl) 2.9 2.8 ??ALBUMIN/GLOBULIN?RATIO 1.4 1.5 ??CALCIUM,?SERUM?(mg/dL) 8.4 9.0 ??CALCIUM?SERUM?(CORRECTED)?(mg/dL) 8.4?L 9.0 ASSESSMENT/PLAN: 1. Chronic phase CML. BCR/ABL transcript level 0.000 on 02/16/2025. Platelets are 362,000, WBC 15.6, ANC 13.2 (02/16/2025). 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 Currently Mr. Watson is on hydroxyurea 500mg every other day. Tolerating them well without any significant side effects. We will not be restarting to tasigna due to black box warning and patient's myocardial infarction 01/23/2025. BCR-ABL transcript levels remain at 0.000, if levels increase we will consider repeating bone marrow biopsy then. Referral to Dr. Calvin at [facility] for second opinion on treatment options for CML, (chronic myeloid leukemia). Patient can continue with hydroxyurea every other day while we wait for second opinion from Dr. Calvin. Patient has been in complete molecular remission (BCR-ABL negative) since 2012, approximately 12-13 years. Recently discontinued Tasigna in December 2024 and hydroxyurea due to a heart attack. Guidelines suggest tapering off treatment after 5 years of remission, and this patient has exceeded that benchmark. However, there is a need to monitor for potential disease recurrence following treatment cessation. Plan: - Discontinue hydroxyurea - Monitor complete blood count (CBC) every 2 months, with particular attention to white blood cell count - Perform BCR-ABL testing every 3 months - If WBC starts climbing to 25-30 x 10^9/L, bring patient in for early evaluation - Follow up every 2 months for CML monitoring Pulmonary Nodules and Interstitial Lung Disease Assessment: CT scan revealed multiple small nodules (approximately 15) in the chest. Patient also has evidence of interstitial lung disease and severe obstructive lung disease (75% obstruction). Pulmonary function tests show less than 90% predicted volume, with all numbers low. Patient has a history of smoking since age 14, quit prior to CML diagnosis. Condition did not improve with inhaler use, suggesting fixed obstruction. Differential diagnoses include COPD and bronchiectasis. Plan: - Refer to transportation specialist (Dr. Savage suggested) for evaluation and management of lung nodules and interstitial lung disease - Continue current bronchodilator therapy - Recommend exercise to educate about potential hypoxemia - Monitor for progression of lung disease and development of oxygen dependence Nutritional Supplementation Assessment: Patient recently discontinued hydroxyurea, which can cause folic acid deficiency. Nutritional supplementation is recommended to support overall health during this transition period. Plan: - Start daily adult multivitamin (includes calcium, vitamin D, and other essential nutrients) - Consider adding vitamin B12 supplement RETURN TO CLINIC: I reviewed the diagnosis, prognosis, and recommended treatment/procedure options with the patient (and/or their legal sales and service representative), including the potential benefits, risks, side effects and alternative therapies. We also discussed the option of no treatment and the possibility of clinical trial participation, if applicable. All questions were addressed, and they demonstrated understanding. They provided informed consent to proceed with the proposed plan of care. BILLING AND COMPLIANCE: I reviewed external records from providers outside my specialty as summarized above. I spent a total of 50 minutes on this patient?s care on the day of their visit excluding time spent related to any billed procedures. This time includes time spent with the patient as well as time spent documenting in the medical record, reviewing patients records and tests, obtaining history, placing orders, communicating with other healthcare professionals, counseling the patient, family or caregiver, and/or care coordination for the diagnoses above. Electronically Signed by: Wolf Siu MD T: 12:15 AM CC: HIRO Smith PCP: Wolf Siu Referring: Wolf Siu This document was completed utilizing speech recognition software. Grammatical errors, random word insertions, pronoun errors, and incomplete sentences are an occasional consequence of this system due to software limitations, ambient noise, and hardware issues. Any formal questions or concerns about the content, text or information contained within the body of this dictation should be directly addressed to the provider for clarification.
== END 2025-06-22 23:59 | disposition home or self-care (01) ==
LOC: SCTC 13:26
PROVIDERS: PCP Family Medicine; Referring Provider Internal Medicine Hematology & Oncology; Visit Provider Internal Medicine Hematology & Oncology
DX: C92.11 Chronic myeloid leukemia, BCR/ABL-positive, in remission (principal); R91.8 Other nonspecific abnormal finding of lung field; Z87.891 Personal history of nicotine dependence; J84.9 Interstitial pulmonary disease, unspecified
CPT/HCPCS: 99212; G0463

== ENCOUNTER → 2025-05-25 | Outpatient (CLI) | payer OTHER, SELFPAY ==
[2025-05-31 22:09] LABS: BCR-ABL1 Source BLOOD; BCR-ABL1/ABL1 % IS 0.042 (0.000)
[2025-06-01 06:31] LABS: P210 BCR-ABL1 DETECTED
== END | disposition home or self-care (01) ==
LOC: SCTO 14:36
PROVIDERS: PCP Family Medicine; Referring Provider Internal Medicine Hematology & Oncology; Visit Provider Internal Medicine Hematology & Oncology
DX: C92.11 Chronic myeloid leukemia, BCR/ABL-positive, in remission (principal)
CPT/HCPCS: 36415; 81206

== ENCOUNTER → 2025-05-31 | Outpatient (CLI) | payer OTHER, SELFPAY ==
--- NOTE | 2025-05-31 14:00 | ECHO_ITS ---
Transthoracic Echo Report Ht (in): 65 Wt (lb): 96 Exam Location: Echo Lab Status: [employer] Installer: Claritza Huynh Indications: Procedure Performed: BP: / HR: Technical Quality: Techncially Difficult Due to Body Habitus and Lung Interference MEASUREMENTS (Male / Female) Normal Values 2D ECHO LV Diastolic Diameter PLAX 3.3 cm 4.2 - 5.9 / 3.9 - 5.3 cm LV Systolic Diameter PLAX 2.2 cm IVS Diastolic Thickness 0.7 cm 0.6 - 1.0 / 0.6 - 0.9 cm LVPW Diastolic Thickness 0.9 cm 0.6 - 1.0 / 0.6 - 0.9 cm LV Relative Wall Thickness 0.5 LVOT Diameter 2.0 cm LA Volume Index 21.9 cm?/m? 16 - 28 cm?/m? M-MODE AV Cusp Separation MM 1.5 cm DOPPLER AV Peak Velocity 109.0 cm/s AV Peak Gradient 4.8 mmHg LVOT Peak Velocity 59.3 cm/s LVOT Peak Gradient 1.4 mmHg AV Area Cont Eq pk 1.7 cm? MV Area PHT 2.4 cm? Mitral E Point Velocity 104.0 cm/s Mitral A Point Velocity 132.0 cm/s Mitral E to A Ratio 0.8 LV E' Lateral Velocity 7.7 cm/s Mitral E to LV E' Lateral Ratio 13.5 LV E' Septal Velocity 5.5 cm/s Mitral E to LV E' Septal Ratio 18.7 TR Peak Velocity 216.0 cm/s TR Peak Gradient 18.7 mmHg PV Peak Velocity 78.5 cm/s PV Peak Gradient 2.5 mmHg FINDINGS Left Ventricle Normal left ventricular size, wall thickness, systolic function with no obvious regional wall motion abnormalities. There is grade II diastolic dysfunction of the left ventricle (pseudonormal filling pattern). . The ejection fraction is visually estimated at 60 %. Right Ventricle The right ventricle is normal in size and systolic function. The estimated right ventricular systolic pressure, 18 mmHg. RAP 5mmHg. Left Atrium The left atrium is normal by two-dimensional, color flow and Doppler imaging with no structural abnormalities, no thrombus formation present. Right Atrium The right atrium is normal by two-dimensional imaging, color flow and Doppler imaging with no structural abnormalities, no thrombus formation present. Atrial Septum The interatrial septum appears normal with no evidence of a shunt. Aorta The aorta is normal by two-dimensional, color flow and Doppler interrogation. Mitral Valve The mitral valve is normal by two-dimensional, color flow and Doppler interrogation. There is mild mitral regurgitation. Aortic Valve The aortic valve is trileaflet and normal by two-dimensional, color flow and Doppler interrogation. There is no significant aortic valve regurgitation. Tricuspid Valve The tricuspid valve is normal by two-dimensional, color flow and Doppler interrogation. There is trace tricuspid regurgitation. Pulmonic Valve The pulmonic valve is not well visualized. There is no significant pulmonic valve regurgitation. Vessels The pulmonary artery appears normal. The inferior vena cava pulmonary and hepatic veins appear normal. Pericardium The pericardium is normal by two-dimensional imaging. There is no significant pericardial effusion. CONCLUSIONS Indications: Chronic Myeloid Leukemia Normal LV. Estimated EF 60%. Grade II. Normal RV. RVSP 18mmHg. RAP 5mmHg. Mild MR. Trace TR. No Pericardial Effusion Carmen Fuller (Electronically Signed) Final Date: 31 May 2025 16:31
== END | disposition home or self-care (01) ==
PROVIDERS: PCP Family Medicine; Referring Provider Internal Medicine Hematology & Oncology; Visit Provider Internal Medicine Hematology & Oncology
DX: C92.11 Chronic myeloid leukemia, BCR/ABL-positive, in remission (principal)
CPT/HCPCS: 93306

== ENCOUNTER → 2025-08-08 | Outpatient (CLI) | payer OTHER, SELFPAY ==
[2025-08-08 09:51] LABS: Basophils # (Auto) 0.2 Thou/mm3 (0.0-0.2); Basophils % (Auto) 1 % (0-2.5); Eosinophils # (Auto) 0.6 Thou/mm3 (0.0-0.5); Eosinophils % (Auto) 3 % (0-10); Hematocrit 42.6 % (41.0-53.0); Hemoglobin 12.7 g/dL (13.5-16.0); Immature Granulocytes Auto 0.30 Thou/mm3 (0.00-0.00); Lymphocytes # (Auto) 1.3 Thou/mm3 (1.0-4.8); Lymphocytes % (Auto) 5 % (10-50); Mean Corpuscular HGB Conc 29.8 g/dl (31.0-37.0); Mean Corpuscular Hemoglobin 19.2 pg (25.0-35.0); Mean Corpuscular Volume 65 fL (80-100); Monocytes # (Auto) 1.5 Thou/mm3 (0.0-0.8); Monocytes % (Auto) 6 % (0-12); Neutrophils # (Auto) 22.1 Thou/mm3 (1.8-7.7); Neutrophils % (Auto) 85 % (37-80); Nucleated Red Blood Cell # 0.00 Thou/mm3 (0.00-0.00); Nucleated Red Blood Cell % 0 /100 WBC (0); Platelet Count 639 Thou/mm3 (140-440); RDW Standard Deviation 44.6 fL (35.1-43.9); Red Blood Count 6.60 Miln/mm3 (4.50-5.90); White Blood Count 26.0 Thou/mm3 (3.8-10.6)
[2025-08-08 10:22] LABS: Alanine Aminotransferase 8 U/L (10-49); Albumin, Serum 4.4 gm/dL (3.4-4.8); Albumin/Globulin Ratio 1.3 (1.2-2.2); Alkaline Phosphatase 99 U/L (46-116); Anion Gap 10 (7-16); Aspartate Amino Transferase 20 U/L (0-34); BUN/Creatinine Ratio 7 Ratio (12-20); Bilirubin,Total 0.7 mg/dL (0.3-1.2); Blood Urea Nitrogen 9 mg/dL (9-23); Calcium 9.4 mg/dL (8.3-10.6); Calcium (Corrected) 9.4 mg/dL (8.5-10.1); Carbon Dioxide 26.7 mMol/L (20.0-31.0); Cardiac Risk Estimate 1.6 RATIO (4.0-6.7); Chloride 106 mMol/L (98-107); Cholesterol 96 mg/dL (132-200); Creatinine (Component) 1.3 mg/dL (0.6-1.3); Globulin 3.4 gm/dL (2.3-3.5); Glucose 98 mg/dL (74-106); HDL Cholesterol 60 mg/dL (40-60); LDL Cholesterol,Calculated 24 mg/dL (0-130); Osmolality,Calculated 283 (275-295); Potassium 4.2 mMol/L (3.4-5.1); Sodium 143 mMol/L (136-145); Total Protein 7.8 gm/dL (5.7-8.2); Triglycerides 59 mg/dL (30-150); eGFR 57 See Note
== END | disposition home or self-care (01) ==
LOC: COPL 08:19
PROVIDERS: PCP Family Medicine; Referring Provider Family Medicine; Visit Provider Family Medicine
DX: I50.22 Chronic systolic (congestive) heart failure (principal)
CPT/HCPCS: 36415; 80053; 80061; 85025

== ENCOUNTER → 2025-08-14 | Outpatient (CLI) | payer OTHER, SELFPAY ==
--- NOTE | 2025-08-14 | XR_ITS ---
Examination: Left hand 2 views Technique one AP lateral left hand 2 views Date and time: August 14, 2025 1143 hours INDICATIONS: Swelling on the lateral side of the hand beginning last week, third digit digits FINDINGS: Mild soft tissue prominence involving the third digit Moderate juxta-articular bone demineralization Mild to moderate narrowing radiocarpal joint No acute fracture No cortical bone destruction Minimal osteoarthritis distal interphalangeal joints second through fifth digits and interphalangeal joint first digit No erosive arthritis Mild soft tissue swelling dorsal to the metacarpal heads 1 mm old bone density dorsal to the carpal bones on the lateral view IMPRESSION: No fracture Osteoarthritis as above
--- NOTE | 2025-08-14 11:00 | XR_ITS ---
Examination: Left wrist 2 views Technique one AP lateral left wrist 2 views Date and time: August 14, 2025 1107 hours INDICATIONS: Swelling in the wrist beginning last week. FINDINGS: Mild osteoarthritis radiocarpal joint Old ununited ulnar styloid tip fracture Mild osteoarthritis first carpometacarpal joint. No fracture No erosive arthritis IMPRESSION: Mild osteoarthritis
[2025-08-14 12:04] LABS: Basophils # (Auto) 0.2 Thou/mm3 (0.0-0.2); Basophils % (Auto) 1 % (0-2.5); Eosinophils # (Auto) 0.5 Thou/mm3 (0.0-0.5); Eosinophils % (Auto) 2 % (0-10); Hematocrit 41.1 % (41.0-53.0); Hemoglobin 12.3 g/dL (13.5-16.0); Immature Granulocytes Auto 0.32 Thou/mm3 (0.00-0.00); Lymphocytes # (Auto) 1.0 Thou/mm3 (1.0-4.8); Lymphocytes % (Auto) 4 % (10-50); Mean Corpuscular HGB Conc 29.9 g/dl (31.0-37.0); Mean Corpuscular Hemoglobin 19.2 pg (25.0-35.0); Mean Corpuscular Volume 64 fL (80-100); Monocytes # (Auto) 1.2 Thou/mm3 (0.0-0.8); Monocytes % (Auto) 4 % (0-12); Neutrophils # (Auto) 25.2 Thou/mm3 (1.8-7.7); Neutrophils % (Auto) 89 % (37-80); Nucleated Red Blood Cell # 0.00 Thou/mm3 (0.00-0.00); Nucleated Red Blood Cell % 0 /100 WBC (0); Platelet Count 654 Thou/mm3 (140-440); RDW Standard Deviation 44.9 fL (35.1-43.9); Red Blood Count 6.39 Miln/mm3 (4.50-5.90); White Blood Count 28.4 Thou/mm3 (3.8-10.6)
[2025-08-14 12:34] LABS: Alanine Aminotransferase 8 U/L (10-49); Albumin, Serum 4.2 gm/dL (3.4-4.8); Albumin/Globulin Ratio 1.4 (1.2-2.2); Alkaline Phosphatase 95 U/L (46-116); Anion Gap 10 (7-16); Aspartate Amino Transferase 17 U/L (0-34); BUN/Creatinine Ratio 12 Ratio (12-20); Bilirubin,Total 0.5 mg/dL (0.3-1.2); Blood Urea Nitrogen 15 mg/dL (9-23); Calcium 9.2 mg/dL (8.3-10.6); Calcium (Corrected) 9.2 mg/dL (8.5-10.1); Carbon Dioxide 26.2 mMol/L (20.0-31.0); Chloride 107 mMol/L (98-107); Creatinine (Component) 1.3 mg/dL (0.6-1.3); Globulin 2.9 gm/dL (2.3-3.5); Glucose 111 mg/dL (74-106); LDH (Lactate Dehydrogenase) 206 U/L (120-246); Osmolality,Calculated 286 (275-295); Potassium 3.8 mMol/L (3.4-5.1); Sodium 143 mMol/L (136-145); Total Protein 7.1 gm/dL (5.7-8.2); Uric Acid 9.4 mg/dL (3.7-9.2); eGFR 57 See Note
[2025-08-14 14:37] LABS: Path Review Blood Smear Sent to Pathologist
[2025-08-17 19:48] LABS: BCR-ABL1 Source BLOOD; BCR-ABL1/ABL1 % IS 0.049 (0.000)
[2025-08-18 06:35] LABS: P210 BCR-ABL1 DETECTED
== END | disposition home or self-care (01) ==
LOC: CDIM 10:59 → SCTO 11:23
PROVIDERS: PCP Family Medicine; Referring Provider Family Medicine; Visit Provider Radiology Diagnostic Radiology
DX: M19.032 Primary osteoarthritis, left wrist (principal); M19.042 Primary osteoarthritis, left hand; C92.11 Chronic myeloid leukemia, BCR/ABL-positive, in remission
CPT/HCPCS: 36415; 73100; 73120; 80053; 81206; 83615; 84550; 85025

== ENCOUNTER 2025-08-28 13:23 | Outpatient (RCR) | payer OTHER, SELFPAY ==
--- NOTE | 2025-08-28 13:59 | CTCFLWUP_ITS ---
Patient: DERRICK WATSON : 1950 Page 4 of 7 FOLLOW UP NOTE DATE OF SERVICE: 08/28/2025 NAME: DERRICK WATSON ACCOUNT: [id number] : 1950 AGE: 74 INTERVAL HISTORY: Derrick, a male with chronic myeloid leukemia in remission since 2012, presented for follow-up after stopping hydroxyurea and nilotinib (Tasigna) following a recent heart attack. His BCR-ABL levels have been [address] scan showed 15 small lung nodules with pneumonia-like changes, and pulmonary function tests revealed 75% obstructive disease unresponsive to inhalers. Hydroxyurea was stopped. Patient followed at [facility] and is being planned for bone marrow biopsy. Patient also follows with his mosaicist in [place]. Last echocardiogram normal subjective: Chief Complaint Follow-up for chronic myeloid leukemia (CML) in remission, recent discontinuation of hydroxyurea, history of heart attack History of Present Illness Derrick Perez is a male patient with a history of chronic myeloid leukemia (CML) presenting for follow-up. He recently had a heart attack and has stopped taking hydroxyurea and Tasigna (nilotinib) as a result. The patient reports feeling better since stopping hydroxyurea, which he was taking at a very small dose. He discontinued Tasigna in December 2024 when he experienced a heart attack. The patient has been in remission from CML since 2012, with BCR-ABL levels consistently at 0 for the past [address] scan revealed small nodules in the patient's chest, with approximately 15 nodules noted. There was also evidence of pneumonia-like changes in his lungs. The patient reports being sick prior to the CT scan. A lung function test was performed, showing that the patient could not reach 90 percent volume. He has been diagnosed with 75 percent obstructive disease, which did not improve with inhaler use. The patient has a history of smoking since age 14 but quit before his leukemia diagnosis. The patient denies seeing a lung specialist for his respiratory issues. He reports a history of pneumonia, which may have contributed to elevated white blood cell counts in the past. The patient is not currently experiencing any specific symptoms related to his CML or respiratory condition. Medications and Supplements - Hydroxyurea - Recently stopped due to heart attack - Was on a very small dose - Tasigna (Nilotinib) - Stopped in December 2024 - Adult multivitamin - Daily Review of Systems Respiratory: Positive for difficulty reaching 90 percent volume on lung function test. 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 Alpha thalassemia Peripheral vascular disease of the right lower extremity. S/p surgery INTERVAL HISTORY: PREVIOUS NOTE: Derrick Nascimento is a 74-year-old Turkish-speaking [place] male with following history. 12/16/2011: Bone marrow biopsy and aspiration showed marketed hypercellular marrow, myeloid hyperplasia in all stages of maturation with 1% blast population. BCR/ABL FISH study positive. BCR/ABL translocation was observed in the 82% of the cells analyzed. Cytogenetics positive for [place] chromosome. January 2012: Tasigna started. 07/19/2013: BCR/able transcript level 0%. 01/19/2014: BCR/ABL transcript level 0% 08/13/2015: BCR/ABL transcript level 0% 05/27/2016: BCR/able transcript level of 0%. 2017: Tasigna was changed to Gleevec due to insurance reasons. 03/29/2018: BCR/ABL transcript level 0% 06/28/2018: BCR/ABL transcript level 0%. 07/05/2018: Gleevec discontinued. 10/29/2018: BCR/ABL transcript levels 2.694% 11/08/2018: Gleevec 300 mg p.o. daily restarted. Patient was also taking hydroxyurea. 12/31/2018: BCR/ABL transcript level 0% 01/17/2019: Hydroxyurea discontinued. 04/05/2019: BCR/ABL transcript level 0%. 04/11/2019: Alpha globin common mutation test showed heterozygous positive for alpha (Zero), genotype (- -/alpha alpha) thalassemia mutation. 06/23/2019: BCR/ABL transcript level 0.006% 08/23/2019: BCR/ABL transcript level 0%. 11/21/2019: BCR/ABL transcript level 0%. 02/23/2020: BCR/ABL transcript level 0.004% 05/24/2020: BCR/ABL transcript level 0.004% 08/14/2020: BCR/ABL transcript level 0.007%. WBC 9.8, ANC 7.2. 11/13/2020: BCR/ABL transcript level 0.007%. WBC 10.1, ANC 6.5. 02/12/2021: BCR/ABL transcript level 0%. WBC 13.0, ANC 9.8. 02/12/2021: Patient has decreased the dose of Tasigna 250 mg p.o. twice daily due to body aches. 05/22/2021: Mr. Watson is currently taking Tasigna 300 mg p.o. twice daily. WBC is 9.9, ANC 16.6. BCR/ABL transcript level is 0%. WBC 19.9, ANC 16.6. 08/15/2021: BCR/ABL transcript level 0%. WBC 20.6, ANC 16.7. 11/14/2021: BCR/ABL transcript level 0%. WBC 15.1, ANC 12.3, hemoglobin 10.7, MCV 73, platelets 523,000. 11/29/2021: Patient stopped taking Tasigna due to worsening peripheral vascular disease in the lower extremities. 03/26/2022: Patient restarted taking Tasigna 300 mg p.o. twice daily 04/08/2022: BCR/ABL transcript level 1.477% 07/24/2022: BCR/ABL transcript level 0.0% 02/19/2023: BCR/ABL transcript level 0.0%. 06/19/2023: BCR/ABL transcript level 0.007%. 09/21/2023: BCR/ABL transcript level 0.000%. 01/19/2024: BCR/ABL transcript level 0.005%. 04/19/2024: BCR-ABL transcript level 0.003%. 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 on Tasigna 300 mg p.o. twice jena and hydroxyurea 500 mg every other day. Alpha thalassemia Peripheral vascular disease of the right lower extremity. S/p surgery DATE OF DIAGNOSIS: 12/16/2011 STAGE/TNM: TREATMENT HISTORY: Care?Plan Start?Date Cycle Day Intent HISTORY OF PRESENT ILLNESS: OTHER MEDICAL HISTORY/CONDITIONS: FAMILY HISTORY: SOCIAL HISTORY: MEDICATIONS: 1. Aspir-81 - 81 mg 1 Daily 2. Brilinta - 60 mg 1 tab Twice a Day 3. Brilinta - 90 mg 1 tab Twice a Day 4. hydrocodone bitartrate - 7.5 mg Twice a Day 5. hydroxyurea - 500 mg 1 Capsule Every other day 6. Lipitor - 20 mg 1 tab Daily 7. metoprolol succinate - 50 mg 1 tab Daily 8. pantoprazole - 40 mg 1 tab Daily 9. pentoxifylline - 400 mg 1 tab Twice a Day 10. tamsulosin - 0.4 mg 1 Capsule Daily 11. Tylenol - 500 mg As needed 12. Ventolin HFA - 90 mcg/actuation 2 Puff(s) Twice a Day Medications Last Reconciled by Yenny Cotton MD on 08/28/2025 ALLERGIES: No Known Drug Allergies REVIEW OF SYSTEMS: A complete 14-point review of systems was performed and is negative except as noted in interval history. PHYSICAL EXAMINATION: VITAL SIGNS: Temperature?98.9, B/P?102/56, Oxygen?Saturation?94% Weight?100?lbs PAIN: 0 - No pain ECOG Performance Status: 0 - Asymptomatic and fully active GENERAL APPEARANCE: Appears well, in no apparent distress, appropriately interactive. HEENT: normal conjunctiva, no scleral icterus, normal hearing, lips without lesions, neck normal range of motion. CARDIOVASCULAR: Normal heart sounds PULMONARY: Normal respiratory effort, no respiratory distress or use of accessory muscles, speaking in full sentences, no tachypnea. EXTREMITIES: No pedal edema SKIN: Normal skin appearance. NEUROLOGIC: Alert and ORIENTED x4. PSHYCHIATRIC: Appropriate affect, mood normal, behavior normal, intact thought and speech. LABORATORY DATA: I have personally reviewed and interpreted each of the patient?s relevant lab tests, abnormal findings are below: Date 08/08/25 08/14/25 ??WHITE?BLOOD?COUNT?(Thou/mm3) 26.0?H 28.4?H ??RED?BLOOD?COUNT?(Miln/mm3) 6.60?H 6.39?H ??HEMOGLOBIN?(gm/dl) 12.7?L 12.3?L ??HEMATOCRIT?(%) 42.6 41.1 ??PLATELET?COUNT?(Thou/mm3) 639?H 654?H ??NEUTROPHILS?%,?AUTO?(%) 85?H 89?H ??LYMPH?%,?AUTO?(%) 5?L 4?L ??NEUTROPHILS,?AUTO?(Thou/mm3) 22.1?H 25.2?H ??GLUCOSE,RANDOM?(mg/dL) ? 111?H ??BLOOD?UREA?NITROGEN?(mg/dL) ? 15 ??CREATININE?(mg/dL) ? 1.30 ??SODIUM?(mmol/L) ? 143 ??POTASSIUM?(mmol/L) ? 3.8 ??CHLORIDE?(mmol/L) ? 107 ??CrCl?(CandG)?(ml/min) ? 31.01 ??AST/SGOT?(Unit/L) ? 17 ??ALT/SGPT?(Unit/L) ? 8?L ??ALKALINE?PHOSPHATASE?(Unit/L) ? 95 ??BILIRUBIN,?TOTAL?(mg/dL) ? 0.5 ??PROTEIN?TOTAL?(gm/dl) ? 7.1 ??ALBUMIN,?SERUM?(gm/dl) ? 4.2 ??GLOBULIN?(gm/dl) ? 2.9 ??ALBUMIN/GLOBULIN?RATIO ? 1.4 ??CALCIUM,?SERUM?(mg/dL) ? 9.2 ??CALCIUM?SERUM?(CORRECTED)?(mg/dL) ? 9.2 ??LDH,?TOTAL?(Unit/L) ? 206 ASSESSMENT/PLAN: 1. Chronic phase CML. BCR/ABL transcript level 0.000 on 02/16/2025. Platelets are 362,000, WBC 15.6, ANC 13.2 (02/16/2025). RI, flu pneumonia on 01/23/2025, Tasigna was stopped by mosaicist, f/u with [facility] Patient complaining of cough since December, cough has been improving, productive, history of smoking age 14 to when he quit about 25 years ago. Currently Mr. Watson is on hydroxyurea 500mg every other day. Tolerating them well without any significant side effects. We will not be restarting to tasigna due to black box warning and patient's myocardial infarction 01/23/2025. BCR-ABL transcript levels remain at 0.000, if levels increase we will consider repeating bone marrow biopsy then. Referral to Dr. Calvin at [facility] for second opinion on treatment options for CML, (chronic myeloid leukemia). Patient can continue with hydroxyurea every other day while we wait for second opinion from Dr. Calvin. Patient has been in complete molecular remission (BCR-ABL negative) since 2012, approximately 12-13 years. Recently discontinued Tasigna in December 2024 and hydroxyurea due to a heart attack. Guidelines suggest tapering off treatment after 5 years of remission, and this patient has exceeded that benchmark. However, there is a need to monitor for potential disease recurrence following treatment cessation. Hydroxyurea was stopped Plan for bone marrow biopsy at [facility] Continue to follow at [facility] and closer follow-up with the mosaicist Continue allopurinol RTC in 2 months with bone marrow results CBC CMP LDH and uric acid Pulmonary Nodules and Interstitial Lung Disease Assessment: CT scan revealed multiple small nodules (approximately 15) in the chest. Patient also has evidence of interstitial lung disease and severe obstructive lung disease (75% obstruction). Pulmonary function tests show less than 90% predicted volume, with all numbers low. Patient has a history of smoking since age 14, quit prior to CML diagnosis. Condition did not improve with inhaler use, suggesting fixed obstruction. Differential diagnoses include COPD and bronchiectasis. Plan: - Refer to special effects specialist (Dr. Savage suggested) for evaluation and management of lung nodules and interstitial lung disease - Continue current bronchodilator therapy - Recommend exercise to educate about potential hypoxemia - Monitor for progression of lung disease and development of oxygen dependence Nutritional Supplementation Assessment: Patient recently discontinued hydroxyurea, which can cause folic acid deficiency. Nutritional supplementation is recommended to support overall health during this transition period. Plan: - Start daily adult multivitamin (includes calcium, vitamin D, and other essential nutrients) - Consider adding vitamin B12 supplement ORDERS: Order # Description [id number] Follow Up 2 Months [id number] Comprehensive Metabolic Panel - 12 + CBC with Auto Diff + Uric Acid, Serum [id number] Lactate Dehydrogenase (LDH) RETURN TO CLINIC: I reviewed the diagnosis, prognosis, and recommended treatment/procedure options with the patient (and/or their legal service support representative), including the potential benefits, risks, side effects and alternative therapies. We also discussed the option of no treatment and the possibility of clinical trial participation, if applicable. All questions were addressed, and they demonstrated understanding. They provided informed consent to proceed with the proposed plan of care. BILLING AND COMPLIANCE: I reviewed external records from providers outside my specialty as summarized above. I spent a total of 50 minutes on this patient?s care on the day of their visit excluding time spent related to any billed procedures. This time includes time spent with the patient as well as time spent documenting in the medical record, reviewing patients records and tests, obtaining history, placing orders, communicating with other healthcare professionals, counseling the patient, family or caregiver, and/or care coordination for the diagnoses above. Electronically Signed by: Wolf Siu MD T: 1:56 PM CC: HIRO Smith PCP: Yenny Chester Referring: Yenny Chester This document was completed utilizing speech recognition software. Grammatical errors, random word insertions, pronoun errors, and incomplete sentences are an occasional consequence of this system due to software limitations, ambient noise, and hardware issues. Any formal questions or concerns about the content, text or information contained within the body of this dictation should be directly addressed to the provider for clarification.
== END 2025-09-22 23:59 | disposition home or self-care (01) ==
LOC: SCTC 13:23
PROVIDERS: PCP Family Medicine; Referring Provider Family Medicine; Visit Provider Internal Medicine Hematology & Oncology
DX: C92.11 Chronic myeloid leukemia, BCR/ABL-positive, in remission (principal); R91.8 Other nonspecific abnormal finding of lung field; Z87.01 Personal history of pneumonia (recurrent); Z87.891 Personal history of nicotine dependence; I25.2 Old myocardial infarction; J84.9 Interstitial pulmonary disease, unspecified; J44.9 Chronic obstructive pulmonary disease, unspecified
CPT/HCPCS: 99212; G0463

== ENCOUNTER → 2025-09-27 | Outpatient (CLI) | payer OTHER, SELFPAY ==
--- NOTE | 2025-09-27 09:30 | ECHO_ITS ---
Patient Info Name: Derrick Watson Age: 74 years : 1950 Gender: Male Ht: 65 cm Wt: 48 kg BSA: 1.02 m2 BP: 99 / 60 mmHg HR: 99 bpm Exam Date: 09/27/2025 7:52 AM Admit Date: 09/27/2025 Site: [facility] Room Number: Echo department Patient Status: O Technical Quality: Poor Exam Type: CA echo doppler complete Reason for Poor Study: body habitus Manager Infrastructure: Niharika Philippe Ordering Physician: Wolf Siu Referring Physician: Wolf Siu Study Info Indications Chronic myeloid leukemia, BCR/ABL-positive, in remission - Primary Location: SDIM Left Ventricular Outflow Tract Name Value Normal LVOT 2D LVOT Diameter 1.8 cm LVOT Doppler LVOT Peak Gradient 1 mmHg LVOT Mean Gradient 40 mmHg LVOT VTI 13 cm LVOT Stroke Volume 33 ml Mitral Valve Name Value Normal MV Diastolic Function MV E Peak Velocity 92 cm/s Tricuspid Valve Name Value Normal Estimated PAP/RSVP RA Pressure 3 mmHg <=5 Aortic Valve Name Value Normal AV Regurgitation 2D LVOT Area 2.5 cm2 Ventricles Name Value Normal LV Dimensions 2D/MM IVS Diastolic Thickness (2D) 0.9 cm 0.6-1.0 LVID Diastole (2D) 3.6 cm 4.2-5.8 LVIW Diastolic Thickness (2D) 1.0 cm 0.6-1.0 LVID Systole (2D) 2.3 cm 2.5-4.0 LVOT Diameter 1.8 cm LV Mass (2D Cubed) 100.21 g 88.00-224.00 LV Mass Index (2D Cubed) 98 g/m2 49-115 Relative Wall Thickness (2D) 0.56 <=0.42 IVS/LVIW Diastolic Thickness (2D) 0.90 0.00-1.50 LV Fractional Shortening/Ejection Fraction 2D/MM LV Fractional Shortening (2D) 36 % 25-43 LV EF (2D Teichholz) 67 % Atria Name Value Normal RA Dimensions RA Diastolic Major [place] Length (4C) 3.59 cm RA Area (4C) 9.1 cm2 <=18.0 Left Ventricle Left ventricular chamber dimension is normal. Left ventricular systolic function is normal with visually estimated ejection fraction of 60-65%. There is concentric remodeling noted in the left ventricle. Left ventricular segmental wall motion is normal. There is grade II diastolic dysfunction in the left ventricle. Right Ventricle Right ventricular chamber dimension is normal. Right ventricular systolic function is normal. Left Atrium Left atrial chamber dimension is normal. Right Atrium Right atrial chamber dimension is normal. Aortic Valve The aortic valve is trileaflet. There is mild aortic valve sclerosis. There is no aortic valve stenosis. There is no aortic valve regurgitation. Pulmonic Valve The pulmonic valve is normal. There is no pulmonic valve stenosis. There is trace pulmonic regurgitation. Mitral Valve The mitral valve has normal leaflets. There is no mitral valve stenosis. There is mild mitral valve regurgitation. Tricuspid Valve The tricuspid valve leaflets are normal. There is no tricuspid valve stenosis. There is mild tricuspid valve regurgitation. Unable to estimate pulmonary artery systolic pressure due to inadequate tricuspid regurgitant envelope. Pericardium/Pleural The pericardium appears normal. There is no pericardial effusion. No pleural effusion visualized. Inferior Vena Cava Normal inferior vena cava with >50% collapse upon inspiration consistent with normal right atrial pressure, 3 mmHg. Aorta The aortic measurements are indexed to age and body surface area. The aortic root at the sinus of Valsalva is not well visualized. The prox ascending aorta is not well visualized. Summary 1. Left ventricle size is normal and systolic function is normal. Estimated ejection fraction is 60-65%. There is grade II diastolic dysfunction. 2. Right ventricle chamber size is normal and systolic function is normal. 3. There is mild aortic valve sclerosis with no stenosis and no regurgitation. 4. There is mild mitral valve regurgitation. 5. There is mild tricuspid valve regurgitation. Prior Cardiovascular Procedures Transthoracic Echocardiogram: Yes Date of Previous TTE: 05/2025 Report Signatures Finalized by Rashid Felix on 09/29/2025 07:10 AM
== END | disposition home or self-care (01) ==
LOC: SDIM 09:09
PROVIDERS: PCP Family Medicine; Referring Provider Internal Medicine Hematology & Oncology; Visit Provider Internal Medicine Hematology & Oncology
DX: I50.30 Unspecified diastolic (congestive) heart failure (principal); I08.3 Combined rheumatic disorders of mitral, aortic and tricuspid valves; C92.11 Chronic myeloid leukemia, BCR/ABL-positive, in remission
CPT/HCPCS: 93306

== ENCOUNTER → 2025-10-11 | Outpatient (CLI) | payer OTHER, SELFPAY ==
[2025-10-11 09:56] LABS: Alanine Aminotransferase < 7 U/L (10-49); Albumin, Serum 4.4 gm/dL (3.4-4.8); Albumin/Globulin Ratio 1.8 (1.2-2.2); Alkaline Phosphatase 92 U/L (46-116); Anion Gap 11 (7-16); Aspartate Amino Transferase 17 U/L (0-34); BUN/Creatinine Ratio 17 Ratio (12-20); Bilirubin,Total 0.5 mg/dL (0.3-1.2); Blood Urea Nitrogen 22 mg/dL (9-23); Calcium 9.2 mg/dL (8.3-10.6); Calcium (Corrected) 9.2 mg/dL (8.5-10.1); Carbon Dioxide 24.5 mMol/L (20.0-31.0); Chloride 110 mMol/L (98-107); Creatinine (Component) 1.3 mg/dL (0.6-1.3); Globulin 2.4 gm/dL (2.3-3.5); Glucose 100 mg/dL (74-106); Osmolality,Calculated 292 (275-295); Potassium 4.6 mMol/L (3.4-5.1); Sodium 145 mMol/L (136-145); Total Protein 6.8 gm/dL (5.7-8.2); eGFR 57 See Note
== END | disposition home or self-care (01) ==
PROVIDERS: PCP Family Medicine; Referring Provider Family Medicine; Visit Provider Family Medicine
DX: C92.10 Chronic myeloid leukemia, BCR/ABL-positive, not having achieved remission (principal); D64.9 Anemia, unspecified
CPT/HCPCS: 36415; 80053

== ENCOUNTER → 2025-10-12 | Outpatient (CLI) | payer OTHER, SELFPAY ==
--- NOTE | 2025-10-12 | XR_ITS ---
Examination: CT chest with intravenous contrast CT abdomen with intravenous contrast CT pelvis with intravenous contrast 2-D coronal and sagittal reconstructions Time of exam: October 12, 2025, 1641 hours, comparison CT chest March 30, 2025, CT abdomen November 06, 2019 INDICATIONS: Chronic myeloid leukemia, BCR/ABL positive, multiple pulmonary nodules on CT chest March 30, 2025 CTDI: vol (mGy) : 4.01 DLP: (mGycm): 278 Technique: Multiple axial images of the chest, abdomen and pelvis with intravenous contrast, 3.0 mm slice thickness. Images obtained post intravenous injection Isovue 370 60 cc. 2-D sagittal and coronal reconstructions. Low dose protocols were performed. One or more of the following dose reduction techniques were used; automated exposure control, adjustment of the mA and/or KV according to patient size, use of iterative reconstruction technique. Findings: Multiple subcentimeter thyroid nodules Again noted pleural-parenchymal scarring in the right upper lobe No thoracic aortic aneurysm dilatation Pulmonary artery opacification is poor Multiple pulmonary nodules are stable compared with March 30, 2025, no new pulmonary nodules Stable scarring in the left upper lobe No interval pneumonia or pulmonary edema No interval mediastinal lymphadenopathy No interval axillary lymphadenopathy No visualized liver lesions AP dimension spleen 11 cm No gallstones No pancreatic mass No common bile duct stones No abdominal or pelvic lymphadenopathy Very heavy calcification distal abdominal aorta and common iliac arteries, stenosis right common iliac artery axial image 222 70% No bowel obstruction Colonic diverticulosis Transverse prostate dimension 4.6 cm Urinary bladder intact 90% stenosis left common femoral artery axial image 272 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
== END | disposition home or self-care (01) ==
PROVIDERS: PCP Family Medicine; Referring Provider Internal Medicine Hematology; Visit Provider Internal Medicine Hematology
DX: R91.8 Other nonspecific abnormal finding of lung field (principal); I70.8 Atherosclerosis of other arteries; I70.208 Unspecified atherosclerosis of native arteries of extremities, other extremity; C92.10 Chronic myeloid leukemia, BCR/ABL-positive, not having achieved remission
CPT/HCPCS: 71260; 74177; A4649; Q9967

== ENCOUNTER → 2025-10-18 | Outpatient (CLI) | payer OTHER, SELFPAY ==
[2025-10-18 12:51] LABS: Basophils # (Auto) 0.2 Thou/mm3 (0.0-0.2); Basophils % (Auto) 1 % (0-2.5); Eosinophils # (Auto) 1.1 Thou/mm3 (0.0-0.5); Eosinophils % (Auto) 4 % (0-10); Hematocrit 40.9 % (41.0-53.0); Hemoglobin 11.4 g/dL (13.5-16.0); Immature Granulocytes Auto 0.47 Thou/mm3 (0.00-0.00); Lymphocytes # (Auto) 1.0 Thou/mm3 (1.0-4.8); Lymphocytes % (Auto) 3 % (10-50); Mean Corpuscular HGB Conc 27.9 g/dl (31.0-37.0); Mean Corpuscular Hemoglobin 17.2 pg (25.0-35.0); Mean Corpuscular Volume 62 fL (80-100); Monocytes # (Auto) 1.2 Thou/mm3 (0.0-0.8); Monocytes % (Auto) 4 % (0-12); Neutrophils # (Auto) 27.5 Thou/mm3 (1.8-7.7); Neutrophils % (Auto) 87 % (37-80); Nucleated Red Blood Cell # 0.00 Thou/mm3 (0.00-0.00); Nucleated Red Blood Cell % 0 /100 WBC (0); Platelet Count 823 Thou/mm3 (140-440); RDW Standard Deviation 51.6 fL (35.1-43.9); Red Blood Count 6.63 Miln/mm3 (4.50-5.90); White Blood Count 31.6 Thou/mm3 (3.8-10.6)
[2025-10-18 13:19] LABS: Alanine Aminotransferase < 7 U/L (10-49); Albumin, Serum 4.3 gm/dL (3.4-4.8); Albumin/Globulin Ratio 1.5 (1.2-2.2); Alkaline Phosphatase 97 U/L (46-116); Anion Gap 9 (7-16); Aspartate Amino Transferase 16 U/L (0-34); BUN/Creatinine Ratio 14 Ratio (12-20); Bilirubin,Total 0.4 mg/dL (0.3-1.2); Blood Urea Nitrogen 19 mg/dL (9-23); Calcium 8.6 mg/dL (8.3-10.6); Calcium (Corrected) 8.6 mg/dL (8.5-10.1); Carbon Dioxide 26.3 mMol/L (20.0-31.0); Chloride 108 mMol/L (98-107); Creatinine (Component) 1.4 mg/dL (0.6-1.3); Globulin 2.8 gm/dL (2.3-3.5); Glucose 98 mg/dL (74-106); LDH (Lactate Dehydrogenase) 198 U/L (120-246); Osmolality,Calculated 287 (275-295); Potassium 4.8 mMol/L (3.4-5.1); Sodium 143 mMol/L (136-145); Total Protein 7.1 gm/dL (5.7-8.2); Uric Acid 4.1 mg/dL (3.7-9.2); eGFR 52 See Note
== END | disposition home or self-care (01) ==
LOC: SCTO 11:58
PROVIDERS: PCP Family Medicine; Referring Provider Internal Medicine Hematology & Oncology; Visit Provider Internal Medicine Hematology & Oncology
DX: C92.11 Chronic myeloid leukemia, BCR/ABL-positive, in remission (principal)
CPT/HCPCS: 36415; 80053; 83615; 84550; 85025

== ENCOUNTER 2025-10-30 11:15 | Outpatient (RCR) | payer OTHER, SELFPAY ==
--- NOTE | 2025-10-30 12:56 | CTCFLWUP_ITS ---
Patient: DERRICK WATSON : 1950 Page 4 of 6 FOLLOW UP NOTE DATE OF SERVICE: 10/30/2025 NAME: DERRICK WATSON ACCOUNT: [id number] : 1950 AGE: 75 INTERVAL HISTORY: Derrick, a male with chronic myeloid leukemia in remission since 2012, presented for follow-up after stopping hydroxyurea and nilotinib (Tasigna) since his heart attack. His BCR-ABL levels have been [address] scan showed 15 small lung nodules with pneumonia-like changes, and pulmonary function tests revealed 75% obstructive disease unresponsive to inhalers. Hydroxyurea was stopped. Patient followed at [facility] and is her bone marrow biopsy bota 1 week ago. Patient also have gout. Patient's white cell count has been increasing. Plan is to continue following up at [facility] for further care and following at [facility] only as needed basis. subjective: Chief Complaint Follow-up for chronic myeloid leukemia (CML) in remission, recent discontinuation of hydroxyurea, history of heart attack History of Present Illness Derrick Perez is a male patient with a history of chronic myeloid leukemia (CML) presenting for follow-up. He recently had a heart attack and has stopped taking hydroxyurea and Tasigna (nilotinib) as a result. The patient reports feeling better since stopping hydroxyurea, which he was taking at a very small dose. He discontinued Tasigna in December 2024 when he experienced a heart attack. The patient has been in remission from CML since 2012, with BCR-ABL levels consistently at 0 for the past [address] scan revealed small nodules in the patient's chest, with approximately 15 nodules noted. There was also evidence of pneumonia-like changes in his lungs. The patient reports being sick prior to the CT scan. A lung function test was performed, showing that the patient could not reach 90 percent volume. He has been diagnosed with 75 percent obstructive disease, which did not improve with inhaler use. The patient has a history of smoking since age 14 but quit before his leukemia diagnosis. The patient denies seeing a lung specialist for his respiratory issues. He reports a history of pneumonia, which may have contributed to elevated white blood cell counts in the past. The patient is not currently experiencing any specific symptoms related to his CML or respiratory condition. Medications and Supplements - Hydroxyurea - Recently stopped due to heart attack - Was on a very small dose - Tasigna (Nilotinib) - Stopped in December 2024 - Adult multivitamin - Daily Review of Systems Respiratory: Positive for difficulty reaching 90 percent volume on lung function test. Objective: Laboratory, Imaging, and Diagnostic Test Results - Date: March 2025 - CBC: WBC 25.6, Neutrophils 38-80% - Previous results: - BCR-ABL: 0.00 (June 2024) - BCR-ABL: Negative (date not specified) - CT scan (date not specified): Small nodules in the chest, 15 nodules noted - Pulmonary Function Test (date not specified): - FEV1/FVC: 72% reduction - Moderate to severe airway obstruction present - Unable to reach 90% volume ONCOLOGY HISTORY:?[facility] Hx? 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 Alpha thalassemia Peripheral vascular disease of the right lower extremity. S/p surgery INTERVAL HISTORY: PREVIOUS NOTE: Derrick Nascimento is a 75-year-old [place]ian-speaking [place] Citizen male with following history. 12/16/2011: Bone marrow biopsy and aspiration showed marketed hypercellular marrow, myeloid hyperplasia in all stages of maturation with 1% blast population. BCR/ABL FISH study positive. BCR/ABL translocation was observed in the 82% of the cells analyzed. Cytogenetics positive for [place] chromosome. January 2012: Tasigna started. 07/19/2013: BCR/able transcript level 0%. 01/19/2014: BCR/ABL transcript level 0% 08/13/2015: BCR/ABL transcript level 0% 05/27/2016: BCR/able transcript level of 0%. 2017: Tasigna was changed to Gleevec due to insurance reasons. 03/29/2018: BCR/ABL transcript level 0% 06/28/2018: BCR/ABL transcript level 0%. 07/05/2018: Gleevec discontinued. 10/29/2018: BCR/ABL transcript levels 2.694% 11/08/2018: Gleevec 300 mg p.o. daily restarted. Patient was also taking hydroxyurea. 12/31/2018: BCR/ABL transcript level 0% 01/17/2019: Hydroxyurea discontinued. 04/05/2019: BCR/ABL transcript level 0%. 04/11/2019: Alpha globin common mutation test showed heterozygous positive for alpha (Zero), genotype (- -/alpha alpha) thalassemia mutation. 06/23/2019: BCR/ABL transcript level 0.006% 08/23/2019: BCR/ABL transcript level 0%. 11/21/2019: BCR/ABL transcript level 0%. 02/23/2020: BCR/ABL transcript level 0.004% 05/24/2020: BCR/ABL transcript level 0.004% 08/14/2020: BCR/ABL transcript level 0.007%. WBC 9.8, ANC 7.2. 11/13/2020: BCR/ABL transcript level 0.007%. WBC 10.1, ANC 6.5. 02/12/2021: BCR/ABL transcript level 0%. WBC 13.0, ANC 9.8. 02/12/2021: Patient has decreased the dose of Tasigna 250 mg p.o. twice daily due to body aches. 05/22/2021: Mr. Watson is currently taking Tasigna 300 mg p.o. twice daily. WBC is 9.9, ANC 16.6. BCR/ABL transcript level is 0%. WBC 19.9, ANC 16.6. 08/15/2021: BCR/ABL transcript level 0%. WBC 20.6, ANC 16.7. 11/14/2021: BCR/ABL transcript level 0%. WBC 15.1, ANC 12.3, hemoglobin 10.7, MCV 73, platelets 523,000. 11/29/2021: Patient stopped taking Tasigna due to worsening peripheral vascular disease in the lower extremities. 03/26/2022: Patient restarted taking Tasigna 300 mg p.o. twice daily 04/08/2022: BCR/ABL transcript level 1.477% 07/24/2022: BCR/ABL transcript level 0.0% 02/19/2023: BCR/ABL transcript level 0.0%. 06/19/2023: BCR/ABL transcript level 0.007%. 09/21/2023: BCR/ABL transcript level 0.000%. 01/19/2024: BCR/ABL transcript level 0.005%. 04/19/2024: BCR-ABL transcript level 0.003%. 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 on Tasigna 300 mg p.o. twice jena and hydroxyurea 500 mg every other day. Alpha thalassemia Peripheral vascular disease of the right lower extremity. S/p surgery DATE OF DIAGNOSIS: 12/16/2011 STAGE/TNM: TREATMENT HISTORY: Care?Plan Start?Date Cycle Day Intent HISTORY OF PRESENT ILLNESS: OTHER MEDICAL HISTORY/CONDITIONS: FAMILY HISTORY: ?[facility] Family Hx? SOCIAL HISTORY: MEDICATIONS: 1. Aspir-81 - 81 mg 1 Daily 2. Brilinta - 60 mg 1 tab Twice a Day 3. Brilinta - 90 mg 1 tab Twice a Day 4. hydrocodone bitartrate - 7.5 mg Twice a Day 5. hydroxyurea - 500 mg 1 Capsule Every other day 6. Lipitor - 20 mg 1 tab Daily 7. metoprolol succinate - 50 mg 1 tab Daily 8. pantoprazole - 40 mg 1 tab Daily 9. pentoxifylline - 400 mg 1 tab Twice a Day 10. tamsulosin - 0.4 mg 1 Capsule Daily 11. Tylenol - 500 mg As needed 12. Ventolin HFA - 90 mcg/actuation 2 Puff(s) Twice a Day?Palabra Meds? Medications Last Reconciled by Yenny Cotton MD on 10/30/2025 ALLERGIES: No Known Drug Allergies REVIEW OF SYSTEMS: A complete 14-point review of systems was performed and is negative except as noted in interval history. PHYSICAL EXAMINATION:?[facility] PE? VITAL SIGNS: Temperature?98.5, B/P?149/78, Oxygen?Saturation?97% Weight?100?lbs PAIN: 0 - No pain ECOG Performance Status: 1 - Symptomatic; ambulatory; restricted in strenuous activity GENERAL APPEARANCE: Appears well, in no apparent distress, appropriately interactive. HEENT: normal conjunctiva, no scleral icterus, normal hearing, lips without lesions, neck normal range of motion. CARDIOVASCULAR: Normal heart sounds PULMONARY: Normal respiratory effort, no respiratory distress or use of accessory muscles, speaking in full sentences, no tachypnea. EXTREMITIES: No pedal edema SKIN: Normal skin appearance. NEUROLOGIC: Alert and ORIENTED x4. PSHYCHIATRIC: Appropriate affect, mood normal, behavior normal, intact thought and speech. LABORATORY DATA: I have personally reviewed and interpreted each of the patient?s relevant lab tests, abnormal findings are below: Date 10/11/25 10/18/25 ??WHITE?BLOOD?COUNT?(Thou/mm3) ? 31.6?H ??RED?BLOOD?COUNT?(Miln/mm3) ? 6.63?H ??HEMOGLOBIN?(gm/dl) ? 11.4?L ??HEMATOCRIT?(%) ? 40.9?L ??PLATELET?COUNT?(Thou/mm3) ? 823?H ??NEUTROPHILS?%,?AUTO?(%) ? 87?H ??LYMPH?%,?AUTO?(%) ? 3?L ??NEUTROPHILS,?AUTO?(Thou/mm3) ? 27.5?H ??GLUCOSE,RANDOM?(mg/dL) 100 98 ??BLOOD?UREA?NITROGEN?(mg/dL) 22 19 ??CREATININE?(mg/dL) 1.30 1.40?H ??SODIUM?(mmol/L) 145 143 ??POTASSIUM?(mmol/L) 4.6 4.8 ??CHLORIDE?(mmol/L) 110?H 108?H ??CrCl?(CandG)?(ml/min) 31.01 28.35 ??AST/SGOT?(Unit/L) 17 16 ??ALT/SGPT?(Unit/L) <?7?L <?7?L ??ALKALINE?PHOSPHATASE?(Unit/L) 92 97 ??BILIRUBIN,?TOTAL?(mg/dL) 0.5 0.4 ??PROTEIN?TOTAL?(gm/dl) 6.8 7.1 ??ALBUMIN,?SERUM?(gm/dl) 4.4 4.3 ??GLOBULIN?(gm/dl) 2.4 2.8 ??ALBUMIN/GLOBULIN?RATIO 1.8 1.5 ??CALCIUM,?SERUM?(mg/dL) 9.2 8.6 ??CALCIUM?SERUM?(CORRECTED)?(mg/dL) 9.2 8.6 ??LDH,?TOTAL?(Unit/L) ? 198 ASSESSMENT/PLAN:?Lorena Siu Assessment/Plan? 1. Chronic phase CML. BCR/ABL transcript level 0.000 on 02/16/2025. Platelets are 362,000, WBC 15.6, ANC 13.2 (02/16/2025). [place], flu pneumonia on 01/23/2025, Tasigna was stopped by line manager, f/u with [facility] Pineda Patient complaining of cough since December, cough has been improving, productive, history of smoking age 14 to when he quit about 25 years ago. Currently Mr. Watson is on hydroxyurea 500mg every other day. Tolerating them well without any significant side effects. We will not be restarting to tasigna due to black box warning and patient's myocardial infarction 01/23/2025. BCR-ABL transcript levels remain at 0.000, if levels increase we will consider repeating bone marrow biopsy then. Referral to Dr. Calvin at [facility] for second opinion on treatment options for CML, (chronic myeloid leukemia). Patient can continue with hydroxyurea every other day while we wait for second opinion from Dr. Calvin. Patient has been in complete molecular remission (BCR-ABL negative) since 2012, approximately 12-13 years. Recently discontinued Tasigna in December 2024 and hydroxyurea due to a heart attack. Guidelines suggest tapering off treatment after 5 years of remission, and this patient has exceeded that benchmark. However, there is a need to monitor for potential disease recurrence following treatment cessation. Hydroxyurea was stopped Advised to follow-up at [facility] with the biopsy results with oncologist there Patient need expert care and better served at [facility] Patient can follow-up with us on as-needed basis No routine appointment need to be scheduled with us Pulmonary Nodules and Interstitial Lung Disease Assessment: CT scan revealed multiple small nodules (approximately 15) in the chest. Patient also has evidence of interstitial lung disease and severe obstructive lung disease (75% obstruction). Pulmonary function tests show less than 90% predicted volume, with all numbers low. Patient has a history of smoking since age 14, quit prior to CML diagnosis. Condition did not improve with inhaler use, suggesting fixed obstruction. Differential diagnoses include COPD and bronchiectasis. Plan: - Refer to high worker (Dr. Savage suggested) for evaluation and management of lung nodules and interstitial lung disease - Continue current bronchodilator therapy - Recommend exercise to educate about potential hypoxemia - Monitor for progression of lung disease and development of oxygen dependence Nutritional Supplementation Assessment: Patient recently discontinued hydroxyurea, which can cause folic acid deficiency. Nutritional supplementation is recommended to support overall health during this transition period. Plan: - Start daily adult multivitamin (includes calcium, vitamin D, and other essential nutrients) - Consider adding vitamin B12 supplement RETURN TO CLINIC: I reviewed the diagnosis, prognosis, and recommended treatment/procedure options with the patient (and/or their legal manufacturers service representative), including the potential benefits, risks, side effects and alternative therapies. We also discussed the option of no treatment and the possibility of clinical trial participation, if applicable. All questions were addressed, and they demonstrated understanding. They provided informed consent to proceed with the proposed plan of care. BILLING AND COMPLIANCE: I reviewed external records from providers outside my specialty as summarized above. I spent a total of 50 minutes on this patient?s care on the day of their visit excluding time spent related to any billed procedures. This time includes time spent with the patient as well as time spent documenting in the medical record, reviewing patients records and tests, obtaining history, placing orders, communicating with other healthcare professionals, counseling the patient, family or caregiver, and/or care coordination for the diagnoses above. Electronically Signed by: Wolf Siu MD T: 12:54 PM CC: Yenny?HIRO Andrade PCP: Yenny Chester Referring: Yenny Chester This document was completed utilizing speech recognition software. Grammatical errors, random word insertions, pronoun errors, and incomplete sentences are an occasional consequence of this system due to software limitations, ambient noise, and hardware issues. Any formal questions or concerns about the content, text or information contained within the body of this dictation should be directly addressed to the provider for clarification.
== END 2025-11-22 23:59 | disposition home or self-care (01) ==
LOC: SCTC 11:15
PROVIDERS: PCP Family Medicine; Referring Provider Family Medicine; Visit Provider Internal Medicine Hematology & Oncology
DX: C92.11 Chronic myeloid leukemia, BCR/ABL-positive, in remission (principal); R91.8 Other nonspecific abnormal finding of lung field; J84.9 Interstitial pulmonary disease, unspecified; Z87.891 Personal history of nicotine dependence; I25.2 Old myocardial infarction
CPT/HCPCS: 99212; G0463

== ENCOUNTER → 2025-11-02 | Outpatient (CLI) | payer OTHER, SELFPAY ==
[2025-11-02 14:23] LABS: Anion Gap 13 (7-16); BUN/Creatinine Ratio 13 Ratio (12-20); Blood Urea Nitrogen 14 mg/dL (9-23); Calcium 8.9 mg/dL (8.3-10.6); Carbon Dioxide 26.0 mMol/L (20.0-31.0); Chloride 108 mMol/L (98-107); Creatinine (Component) 1.1 mg/dL (0.6-1.3); Glucose 103 mg/dL (74-106); Osmolality,Calculated 292 (275-295); Potassium 4.2 mMol/L (3.4-5.1); Sodium 147 mMol/L (136-145); Uric Acid 4.2 mg/dL (3.7-9.2); eGFR > 60 See Note
== END | disposition home or self-care (01) ==
LOC: COPL 10:15
PROVIDERS: PCP Family Medicine; Referring Provider Family Medicine; Visit Provider Family Medicine
DX: M10.9 Gout, unspecified (principal)
CPT/HCPCS: 36415; 80048; 84550